=== PATIENT | female | born 1950 | race Caucasian/White ===

== ENCOUNTER 2017-04-02 23:18 | Inpatient (IN) | payer MEDICAID, OTHER ==
--- NOTE | 2017-04-02 23:39 | C.PDOC ---
History Of Present Illness 66F c/o dyspnea on exertion and leg swelling progressively worsening over the last couple months. she recently came back here from [place] 03/27 after being there for 10 months. her daughter noted her BP has been higher than normal the last 3 days. Time Seen by Provider: 04/02/17 23:39 Chief Complaint (Nursing): Lower Extremity Problem/Injury Past Medical History Vital Signs: Last Vital Signs Temp 97.4 F L 04/05/17 16:40 Pulse 66 04/05/17 17:35 Resp 20 04/05/17 16:40 BP 151/76 H 04/05/17 17:35 Pulse Ox 99 04/05/17 16:40 - Medical History PMH: CHF, Diabetes, HTN, Hypercholesterolemia, Peripheral Edema Denies: Asthma (Pt denies), Gastritis, Chronic Kidney Disease Surgical History: CABG (09/02/2015) - [facility] Procedures FLUOROSCOPY OF LEFT HEART USING LOW OSMOLAR CONTRAST (08/30/15) FLUOROSCOPY OF SINGLE CORONARY ARTERY USING L OSM CONTRAST (08/30/15) MEASURE CARDIAC SAMPL & PRESSURE, BILATERAL, PERC (08/30/15) Family History: States: Unknown Family Hx - Social History Hx Alcohol Use: No Hx Substance Use: No - Immunization History Hx Tetanus Toxoid Vaccination: No Hx Influenza Vaccination: No Hx Pneumococcal Vaccination: No Review Of Systems Except As Marked, All Systems Reviewed And Found Negative. Constitutional: Negative for: Fever, Weakness Cardiovascular: Positive for: Orthopnea, Edema. Negative for: Chest Pain Respiratory: Positive for: Cough, SOB with Excertion. Negative for: Shortness of Breath Gastrointestinal: Negative for: Nausea, Vomiting, Abdominal Pain Neurological: Negative for: Weakness, Numbness, Headache Physical Exam - Physical Exam Appears: Non-toxic, Toxic Skin: Warm, Dry Head: Atraumatic Eye(s): bilateral: PERRL Nose: No Epistaxis Oral Mucosa: Moist Lips: No Swelling Neck: Normal ROM Cardiovascular: Rhythm Regular Respiratory: No Accessory Muscle Use, Rales (bibasilar) Gastrointestinal/Abdominal: Soft, No Tenderness Extremity: Swelling (2+ pitting ble) Neurological/Psych: Oriented x3, Other (no focal deficits) ED Course And Treatment - Laboratory Results Result Diagrams: 04/05/17 07:24 04/05/17 04:00 O2 Sat by Pulse Oximetry: 98 Medical Decision Making Medical Decision Making: ecg- nsr 62, lad, no stemi Disposition - Disposition Disposition: HOSPITALIZED Disposition Time: 00:56 Condition: STABLE - Clinical Impression Clinical Impression: Acute on chronic diastolic CHF (congestive heart failure)
[2017-04-03 00:20] LABS: BASO # 0.1 K/uL (0.0-0.2); BASO % 1.3 % (0.0-2.0); EOS # 0.3 K/uL (0.0-0.7); EOS % 3.3 % (0.0-4.0); HEMOGLOBIN 12.1 g/dL (11.0-16.0); LYMPH # 3.2 K/uL (1.0-4.3); LYMPH % 30.9 % (20.0-40.0); MEAN CELL VOLUME 81.5 fL (81.0-99.0); MEAN CORPUSCULAR HEMOGLOBIN 26.3 pg (27.0-31.0); MEAN CORPUSCULAR HGB CONC 32.3 g/dL (33.0-37.0); MEAN PLATELET VOLUME 10.1 fL (7.2-11.7); MONO # 0.7 K/uL (0.0-0.8); MONO % 7.2 % (0.0-10.0); NEUT # 5.9 K/uL (1.8-7.0); NEUT % 57.3 % (50.0-75.0); RBC 4.6 Mil/uL (3.80-5.20); RED CELL DISTRIBUTION WIDTH 15.1 % (11.5-14.5); WHITE BLOOD COUNT 10.4 K/uL (4.8-10.8)
[2017-04-03 00:35] LABS: ALB/GLOB RATIO 0.9 (1.0-2.1); ALT/SGPT 27 U/L (9-52); AST/SGOT 13 U/L (14-36); BLOOD UREA NITROGEN 68 mg/dL (7-17); GFR AFRICAN-AMERICAN 16; GFR NON-AFRICAN AMERICAN 14
[2017-04-03 00:36] LABS: CALCIUM 8.2 mg/dl (8.6-10.4)
[2017-04-03 00:48] LABS: B-TYPE NATRIURETIC PEPTIDE 4210 pg/mL (0-900)
--- NOTE | 2017-04-03 01:09 | CP.PCM.HP ---
<Stacie Garcia - Last Filed: 04/03/17 04:56> History of Present Illness - History of Present Illness History of Present Illness: Medicine Note CC: SOB HPI: 66F with PMHx of CAD, CHF, HTN, HLD, DM presents to the ED with SOB. As per daughter that was at bedside, patient returned from [facility] last week. For the past month she has been feeling fatigued, SOB, difficulty ambulating. She is compliant with her medications, but she does not adhere to the limit in fluid intake and salt intake. Her blood pressures the past 3 days have been elevated, prompting her visit to the ED. She sleeps with 2 pillows at night, denied PND. She admitted to a 20lb weight gain the past few months. Denied fever , chills, headache, chest pain, abdominal pain, n/v/d/c, or urinary symptoms. PMHx: CAD, CHF, HTN, HLD, DM PSHx: CABG, hysterectomy Meds: as per NOV All: NKDA SHx: Denied x3 FHx: Unremarkable Present on Admission - Present on Admission Any Indicators Present on Admission: No Review of Systems - Constitutional Constitutional: Fatigue, Weight Gain. absent: Excessive Sweating, Fever - EENT Eyes: absent: Change in Vision, Loss of Vision Ears: absent: Tinnitus Nose/Mouth/Throat: absent: Sore Throat, Neck Mass - Breasts Breasts: absent: Pain - Cardiovascular Cardiovascular: Edema, Leg Edema, Orthopnea, Pedal Edema. absent: Chest Pain, Chest Pain at Rest - Respiratory Respiratory: absent: Cough, Dyspnea - Gastrointestinal Gastrointestinal: absent: Abdominal Pain - Genitourinary Genitourinary: absent: Dysuria, Hematuria - Musculoskeletal Musculoskeletal: absent: Back Pain - Integumentary Integumentary: absent: Wounds - Neurological Neurological: absent: Syncope, Vertigo, Weakness - Psychiatric Psychiatric: absent: Anxiety - Endocrine Endocrine: absent: Polydipsia, Polyphagia - Hematologic/Lymphatic Hematologic: absent: Easy Bleeding, Easy Bruising Past Patient History - Past Medical History & Family History Past Medical History?: Yes - Past Social History Smoking Status: Never Smoked - CARDIAC Hx Congestive Heart Failure: Yes Hx Hypercholesterolemia: Yes Hx Hypertension: Yes Hx Peripheral Edema: Yes - PULMONARY Hx Asthma: No (Pt denies) - NEUROLOGICAL Hx Neurological Disorder: No - HEENT Other/Comment: BOTH EYES - BLURRY - RENAL Hx Chronic Kidney Disease: No - ENDOCRINE/METABOLIC Hx Diabetes Mellitus Type 2: Yes - HEMATOLOGICAL/ONCOLOGICAL Hx Blood Disorders: No - INTEGUMENTARY Hx Dermatological Problems: No - MUSCULOSKELETAL/RHEUMATOLOGICAL Hx Falls: No - GASTROINTESTINAL Hx Gastritis: No - GENITOURINARY/GYNECOLOGICAL Hx Genitourinary Disorders: No - PSYCHIATRIC Hx Substance Use: No - SURGICAL HISTORY Hx Coronary Artery Bypass Graft: Yes (09/02/2015) - ANESTHESIA Hx Anesthesia: Yes Hx Anesthesia Reactions: No Hx Malignant Hyperthermia: No Meds Allergies/Adverse Reactions: Allergies Allergy/AdvReac Type Severity Reaction Status Date / Time No Known Allergies Allergy Verified 04/02/17 23:27 Physical Exam - Constitutional Appears: No Acute Distress - Head Exam Head Exam: NORMAL INSPECTION, NORMOCEPHALIC - Eye Exam Eye Exam: EOMI, Normal appearance, PERRL Pupil Exam: NORMAL ACCOMODATION - ENT Exam ENT Exam: Mucous Membranes Moist - Respiratory Exam Respiratory Exam: Decreased Breath Sounds, Rales - Cardiovascular Exam Cardiovascular Exam: REGULAR RHYTHM, JVD, RRR, +S1, +S2 - GI/Abdominal Exam GI & Abdominal Exam: Distended, Normal Bowel Sounds, Soft. absent: Tenderness - Rectal Exam Rectal Exam: Deferred - Extremities Exam Extremities exam: Positive for: normal inspection, pedal edema, pedal pulses present. Negative for: tenderness - Back Exam Back exam: NORMAL INSPECTION. absent: CVA tenderness (L), CVA tenderness (R) - Neurological Exam Neurological exam: Alert, CN II-XII Intact, Oriented x3, Reflexes Normal - Psychiatric Exam Psychiatric exam: Normal Affect, Normal Mood - Skin Skin Exam: Dry, Intact, Normal Color, Warm Results - Vital Signs Recent Vital Signs: Last Vital Signs Temp 97.5 F L 04/02/17 23:20 Pulse 62 04/03/17 00:45 Resp 18 04/03/17 00:45 BP 185/83 H 04/03/17 00:45 Pulse Ox 98 04/03/17 00:47 - Labs Result Diagrams: 04/03/17 00:08 04/03/17 00:08 Labs: Laboratory Results - last 24 hr 04/03/17 04/03/17 00:08 00:08 WBC 10.4 RBC 4.60 Hgb 12.1 Hct 37.5 MCV 81.5 D MCH 26.3 L MCHC 32.3 L RDW 15.1 H Plt Count 249 D MPV 10.1 Neut % (Auto) 57.3 Lymph % (Auto) 30.9 Gila % (Auto) 7.2 Eos % (Auto) 3.3 Baso % (Auto) 1.3 Neut # 5.9 Lymph # 3.2 Gila # 0.7 Eos # 0.3 Baso # 0.1 Sodium 135 Potassium 4.9 Chloride 103 Carbon Dioxide 20 L Anion Gap 17 BUN 68 H Creatinine 3.4 H Est GFR ( Amer) 16 Est GFR (Non-Af Amer) 14 Random Glucose 330 H Calcium 8.2 L Total Bilirubin 0.4 AST 13 L ALT 27 Alkaline Phosphatase 112 Troponin I < 0.0120 NT-Pro-B Natriuret Pep 4210 H Total Protein 6.3 Albumin 3.0 L Globulin 3.3 Albumin/Globulin Ratio 0.9 L Assessment & Plan - Assessment and Plan (Free Text) Assessment: 66F with PMHx of CAD, CHF, HTN, HLD, DM presents to the ED with SOB Plan: CHF Exacerbation * BNP:4210 * Last ECHO 03/2016: EF of 51% with diastolic dysfunction * Nuclear stress test was done later that month of 03/2016 --> EF 30% * Lasix 40mg IVP BID * F/U ECHO Acute on Chronic Renal Insufficiency * Upon admission: BUN/ CRE: 68/ 3.4 * Baseline creatinine: 2.4 * Nephrology consulted - Dr. Archuleta- help appreciated * F/U urine protein, creatine HTN * Resumed the following home medications: Coreg 6.25mg PO BID, Metolazone 2.5mg PO daily * Added Hydralazine 25mg PO TID, Imdur 30mg PO daily HLD * Crestor 5mg PO QHS * F/U Lipid Panel DM * Accuchecks * ISS * Gabapentin 300mg PO BID * F/U HBGA1C Hx CAD Prophylactic Measure * GI PPX: Protonix 40mg PO daily * DVT PPX: Heparin Q12H, SCDs c/i due to CHF * Carb Consistent Diet, with fluid restriction of <1200mL * Daily Weight, intake and output DW Radha Quevedo DO, PGY-1 <Rolan Rodriguez P - Last Filed: 07/16/17 06:33> Results - Vital Signs Recent Vital Signs: Last Vital Signs Temp 97.6 F 04/07/17 23:20 Pulse 55 L 04/08/17 00:00 Resp 20 04/07/17 23:20 BP 131/70 04/07/17 23:20 Pulse Ox 96 04/07/17 23:20 - Labs Result Diagrams: 04/06/17 11:27 04/07/17 07:15 Labs: Laboratory Results - last 24 hr 04/07/17 04/07/17 04/07/17 07:15 11:48 16:15 Sodium 138 Potassium 5.0 Chloride 102 Carbon Dioxide 23 Anion Gap 17 BUN 77 H Creatinine 4.4 H Est GFR ( Amer) 12 Est GFR (Non-Af Amer) 10 POC Glucose (mg/dL) 287 H 220 H Random Glucose 113 H Calcium 7.8 L 04/07/17 04/08/17 21:25 06:10 Sodium Potassium Chloride Carbon Dioxide Anion Gap BUN Creatinine Est GFR ( Amer) Est GFR (Non-Af Amer) POC Glucose (mg/dL) 165 H 78 Random Glucose Calcium Attending/Attestation - Attestation I have personally seen and examined this patient.: Yes I have fully participated in the care of the patient.: Yes I have reviewed all pertinent clinical information: Yes
[2017-04-03 01:17] LABS: SQUAMOUS EPITHIAL 2 /hpf (0-5); URINE BACTERIA RARE (<OCC); URINE BILIRUBIN NEGATIVE (NEGATIVE); URINE BLOOD NEGATIVE (NEGATIVE); URINE CLARITY Clear (Clear); URINE COLOR Straw (YELLOW); URINE GLUCOSE (UA) 3+ mg/dL (Normal); URINE LEUKOCYTE ESTERASE NEG Leu/uL (Negative); URINE NITRATE NEGATIVE (NEGATIVE); URINE PROTEIN 2+ mg/dL (NEGATIVE); URINE UROBILINOGEN NORMAL mg/dL (0.2-1.0)
[2017-04-03 05:36] LABS: HDL CHOLESTEROL 40 mg/dL (30-70)
[2017-04-03 05:48] LABS: LDL CHOLESTEROL 135 mg/dL (0-129)
[2017-04-03] MEDS: (Novolin R) Insulin Human Regular 100 units/ml vial SC SCH ×4 (08:20→22:12)
--- NOTE | 2017-04-03 09:10 | CP.PCM.PN ---
Subjective - Date & Time of Evaluation Date of Evaluation: 04/03/17 Time of Evaluation: 08:45 - Subjective Subjective: Hospitalist Progress Note (Patient was seen and examined at 8:45 AM 04/03/17 ER Bed #14 with Daughter Vini present) PMD: [facility] CODE STATUS: FULL CODE. NO Living Will/Advance Directive. Designates Daughter Vini [phone] as Health Care Proxy 66 year old female (PMHx CHF, CAD Chronic Renal Insufficiency, HTN, HLD, DM 2 on Insulin) was admitted earlier this morning 04/03/17 for 1 month of worsening fatigue, SOB, and difficulty ambulating. She was found to be in CHF Exacerbation. Currrently upon FULL ROS there is NO chest pain, NO palpitations, (+) SOB but it has improved since treatment in ER and is not currently requiring supplemental oxygen, (+) Cough dry that comes and goes, NO wheezing, NO abdominal pain, NO n/v/d/c, NO burning/pain with urination, NO lightheadedness/ dizziness, NO headache, NO new changes in vision, NO new changes in hearing, NO paresthesias, NO diaphoresis, (+) Edema of the legs that has worsened over the past 1 month Exam: HEENT: NCA, EOMI, PERRLA, NO lymphadenopathy, NO thyromegaly, NO pharyngeal erythema/exudate Cardio: NS1 and NS2, NO M/R/G, NO JVD, NO Hepatojugular Reflux Resp: Bilateral Mid to Lower Lung Field Inspiratory Rhonchi GI: BSx4 are decreased, NT, Central Obesity, Could NOT adequately palpate Liver and Spleen, NO guarding rebound tenderness Ext: Pulses are strong and equal, Capillary Refill is 2 seconds, 1+ Pitting Edema from the feet to the just below the knees Neuro: CN II through XII are grossly intact Assessment and Plan: 1). CHF Exacerbation/Hx CAD BNP is 4210 Echo done in March 2016 showed EF 51% Nuclear Stress Test March 2016 showed and EF of 30% Carvedilol 6.25 mg PO 2x/day Lasix 40 mg IV Q12H Isosorbide Mononitrate 30 mg PO 1x/day Metolazone 2.5 mg PO 1x/day F/U 2ED Echocardiogram F/U further recommendations Cardiology Dr. Gamez F/U Daily Weight F/u CT Chest 2). Acute On Chronic Renal Insufficiency BUN/Cr currently at 68/3.4 and baseline Cr is 2.4 F/U Renal U/S F/U Urine Protein and Cr F/U further recommendations from Nephrology Dr. Archuleta 3). HTN Carvedilol, Isorbide, Lasix, Metolazone as above 4). HLD Crestor 5 mg PO QHS 5). DM 2 on Insulin Levemir 15 units SC QHS Regular ISS Gabapentin 300 mg PO 2x/day 6). Prophylactic Measure Heparin 5,000 Units SC Q12H Protonix 40 mg PO 1x/day Carb Consisten Diet Fluid Restrict 1200 per day Daily Weight F/U Bilateral Venous Dopplers Hermelindo Jo D.O. Objective - Vital Signs/Intake and Output Vital Signs (last 24 hours): Temp Pulse Resp BP Pulse Ox 98.1 F 55 L 16 180/66 H 97 04/03/17 07:25 04/03/17 07:25 04/03/17 07:25 04/03/17 07:25 04/03/17 07:25 - Medications Medications: Current Medications Carvedilol (Coreg) 6.25 mg PO BID JACIEL Clopidogrel Bisulfate (Plavix) 75 mg PO DAILY JACIEL Famotidine (Pepcid) 20 mg PO BID JACIEL Furosemide (Lasix) 40 mg IVP Q12 JACIEL Gabapentin (Neurontin) 300 mg PO BID JACIEL Heparin Sodium (Porcine) (Heparin) 5,000 units SC Q12 JACIEL Hydralazine HCl (Apresoline) 25 mg PO TID JACIEL Insulin Detemir (Levemir) 15 unit SC HS [facility] Insulin Human Regular (Novolin R) 0 unit SC ACHS JACIEL PRN Reason: Protocol Last Admin: 04/03/17 08:20 Dose: 1 unit Isosorbide Mononitrate (Imdur) 30 mg PO DAILY JACIEL Metolazone (Zaroxolyn) 2.5 mg PO DAILY JACIEL Rosuvastatin Calcium (Crestor) 5 mg PO HS JACIEL
[2017-04-03] MEDS: metOLazone 2.5 MG TAB PO SCH (10:15)
--- NOTE | 2017-04-03 10:23 | US ---
PROCEDURE: Ultrasound of the Kidneys HISTORY: Acute on Chronic Renal Insufficiency COMPARISON: 09/15/2015. TECHNIQUE: Sonogram of the kidneys. FINDINGS: RIGHT KIDNEY: Measures: 11.6 x 4.6 x 4.9 cm. Normal in size, contour and echogenicity. No stone, solid mass lesion or hydronephrosis visualized. LEFT KIDNEY: Measures: 11.4 by 5.8 x 6.0 cm. Normal in size, contour and echogenicity. No stone, solid mass lesion or hydronephrosis visualized. OTHER FINDINGS: Moderate bladder distention IMPRESSION: No hydronephrosis. Unremarkable kidneys per this ultrasound
--- NOTE | 2017-04-03 11:18 | CT ---
PROCEDURE: CT scan of the chest dated 04/03/2017. HISTORY: evaluation of pleural effusion; hx of CHF COMPARISON: The comparison made with chest radiograph earlier same day. Comparison also made in in with the with prior study 04/15/2016 TECHNIQUE: Contiguous axial images were obtained through the chest without intravenous contrast enhancement. Sagittal and coronal reconstructions were performed. Radiation dose (DLP): 767.08 mGy-cm. This CT exam was performed using one or more of the following dose reduction techniques: Automated exposure control, adjustment of the mA and/or kV according to patient size, and/or use of iterative reconstruction technique. FINDINGS: LUNGS: The pulmonary vasculature is increased with ground-glass opacities consistent with this patient's history of pulmonary edema/ CHF. Additionally, there are areas of linear atelectasis and or scarring in the left upper lobe. The the MEDIASTINUM: Sternotomy wires again noted Heart is enlarged. No significant pericardial effusion. . Ascending thoracic aorta measures approximately 3.56 cm and descending thoracic aorta measures approximately 2.26 cm. Pulmonary trunk measures approximately 3.5 cm ; rule out underlying mild pulmonary arterial hypertension. Several small nonspecific mediastinal lymph nodes are present. Evaluation for hilar adenopathy is limited due to the lack of circulating intravenous contrast material. The the central airways are midline and patent. No obvious endoluminal lesions. . PLEURA: No pleural fluid. No pneumothorax. BONES: Minor multilevel degenerative spondylosis of the thoracic spine. There are no acute compression fractures nor retropulsed fragments. Vertebral bodies exhibit normal stature. UPPER ABDOMEN: Grossly unremarkable. OTHER FINDINGS: Thyroid gland is small of mildly prominent. Small approximately 5 mm low-attenuation focus right lobe thyroid gland could represent nodule or colloid cyst. Followup thyroid ultrasound suggested IMPRESSION: Findings consistent with mild pulmonary edema/ CHF. Linear atelectasis and or scarring left upper lobe. Cardiomegaly. No significant pericardial effusion. See above discussion for additional findings and details.
--- NOTE | 2017-04-03 11:57 | CP.PCM.CON ---
History of Present Illness - History of Present Illness History of Present Illness: HPI: 66F with PMHx of CAD, CHF, HTN, HLD, DM presents to the ED with SOB. As per daughter that was at bedside, patient returned from [facility] last week. For the past month she has been feeling fatigued, SOB, difficulty ambulating. She is compliant with her medications, but she does not adhere to the limit in fluid intake and salt intake. Her blood pressures the past 3 days have been elevated, prompting her visit to the ED. She sleeps with 2 pillows at night, denied PND. She admitted to a 20lb weight gain the past few months. Denied fever , chills, headache, chest pain, abdominal pain, n/v/d/c, or urinary symptoms. Hx of ckd 4, baseline creatinine mid 2s. started on iv lasix inpatient last stress test 2015- ef 30% PMHx: CAD, CHF, HTN, HLD, DM PSHx: CABG, hysterectomy Meds: as per MAR All: NKDA SHx: Denied x3 FHx: Unremarkable Review of Systems - Review of Systems All systems: reviewed and no additional remarkable complaints except (as per hpi ) Past Patient History - Past Medical History & Family History Past Medical History?: Yes - Past Social History Smoking Status: Never Smoked - CARDIAC Hx Congestive Heart Failure: Yes Hx Hypercholesterolemia: Yes Hx Hypertension: Yes Hx Peripheral Edema: Yes - PULMONARY Hx Asthma: No (Pt denies) - NEUROLOGICAL Hx Neurological Disorder: No - HEENT Other/Comment: BOTH EYES - BLURRY - RENAL Hx Chronic Kidney Disease: No - ENDOCRINE/METABOLIC Hx Diabetes Mellitus Type 2: Yes - HEMATOLOGICAL/ONCOLOGICAL Hx Blood Disorders: No - INTEGUMENTARY Hx Dermatological Problems: No - MUSCULOSKELETAL/RHEUMATOLOGICAL Hx Falls: No - GASTROINTESTINAL Hx Gastritis: No - GENITOURINARY/GYNECOLOGICAL Hx Genitourinary Disorders: No - PSYCHIATRIC Hx Substance Use: No - SURGICAL HISTORY Hx Coronary Artery Bypass Graft: Yes (09/02/2015) - ANESTHESIA Hx Anesthesia: Yes Hx Anesthesia Reactions: No Hx Malignant Hyperthermia: No Meds Allergies/Adverse Reactions: Allergies Allergy/AdvReac Type Severity Reaction Status Date / Time No Known Allergies Allergy Verified 04/02/17 23:27 - Medications Medications: Current Medications Carvedilol (Coreg) 6.25 mg PO BID JACIEL Last Admin: 04/03/17 10:11 Dose: 6.25 mg Clopidogrel Bisulfate (Plavix) 75 mg PO DAILY [facility] Last Admin: 04/03/17 10:16 Dose: 75 mg Famotidine (Pepcid) 20 mg PO BID [facility] Last Admin: 04/03/17 10:15 Dose: 20 mg Furosemide (Lasix) 40 mg IVP Q12 [facility] Last Admin: 04/03/17 11:40 Dose: 40 mg Gabapentin (Neurontin) 300 mg PO BID [facility] Last Admin: 04/03/17 11:45 Dose: 300 mg Heparin Sodium (Porcine) (Heparin) 5,000 units SC Q12 [facility] Hydralazine HCl (Apresoline) 25 mg PO TID [facility] Last Admin: 04/03/17 10:10 Dose: 25 mg Insulin Detemir (Levemir) 15 unit SC [facility] Insulin Human Regular (Novolin R) 0 unit SC ACHS [facility] PRN Reason: Protocol Last Admin: 04/03/17 08:20 Dose: 1 unit Isosorbide Mononitrate (Imdur) 30 mg PO DAILY [facility] Last Admin: 04/03/17 10:14 Dose: 30 mg Metolazone (Zaroxolyn) 2.5 mg PO DAILY [facility] Last Admin: 04/03/17 10:15 Dose: 2.5 mg Rosuvastatin Calcium (Crestor) 5 mg PO [facility] Physical Exam - Constitutional Appears: Non-toxic, No Acute Distress, Other (obese) - Head Exam Head Exam: NORMAL INSPECTION - Eye Exam Eye Exam: Normal appearance - ENT Exam ENT Exam: Mucous Membranes Moist, Normal Exam - Neck Exam Neck exam: Positive for: Normal Inspection - Respiratory Exam Respiratory Exam: Decreased Breath Sounds, NORMAL BREATHING PATTERN - Cardiovascular Exam Cardiovascular Exam: REGULAR RHYTHM, RRR - GI/Abdominal Exam GI & Abdominal Exam: Distended, Normal Bowel Sounds, Soft - Extremities Exam Extremities exam: Positive for: pedal edema Results - Vital Signs Recent Vital Signs: Last Vital Signs Temp 98.1 F 04/03/17 07:25 Pulse 60 04/03/17 11:32 Resp 16 04/03/17 11:32 BP 166/66 H 04/03/17 11:40 Pulse Ox 98 04/03/17 11:32 - Labs Result Diagrams: 04/03/17 00:08 04/03/17 00:08 Labs: Laboratory Results - last 24 hr 04/03/17 04/03/17 04/03/17 05:21 05:21 05:21 POC Glucose (mg/dL) Hemoglobin A1c 11.1 H Triglycerides 109 D Cholesterol 207 H LDL Cholesterol Direct 135 H HDL Cholesterol 40 25-OH Vitamin D Total < 12.8 L Urine Eosinophils Ur Random Creatinine U Random Total Protein 04/03/17 04/03/17 04/03/17 07:45 08:02 08:02 POC Glucose (mg/dL) 196 H Hemoglobin A1c Triglycerides Cholesterol LDL Cholesterol Direct HDL Cholesterol 25-OH Vitamin D Total Urine Eosinophils Negative Ur Random Creatinine 25.5 U Random Total Protein Cancelled 04/03/17 04/03/17 11:21 11:47 POC Glucose (mg/dL) 325 H Hemoglobin A1c Triglycerides Cholesterol LDL Cholesterol Direct HDL Cholesterol 25-OH Vitamin D Total Urine Eosinophils Ur Random Creatinine U Random Total Protein 266.0 H Assessment & Plan (1) AINSLEY (acute kidney injury) Status: Acute (2) Acute on chronic diastolic CHF (congestive heart failure) Status: Acute (3) Acute on chronic renal insufficiency Status: Acute (4) CKD (chronic kidney disease) stage 4, GFR 15-29 ml/min Status: Acute (5) Cardiorenal syndrome Status: Acute (6) HTN (hypertension) Status: Acute - Assessment and Plan (Free Text) Assessment: # Ainsley / underlying ckd 4 # chf / fluid overload # nephrotic syndrome, approx 10g proteinuria, DM nephropathy # htn plan: agree w/ iv lasix started on hydralazine, may increase dose if bp uncontrolled not a candidate for acei / arb, watch renal function renal ultrasound unremarkable check pth, phos
[2017-04-03] MEDS ORDERED: (Novolin R) Insulin Human Regular 100 units/ml vial ONE (12:00)
--- NOTE | 2017-04-03 12:05 | RAD ---
HISTORY: Shortness of breath COMPARISON: No prior. TECHNIQUE: Chest PA and lateral FINDINGS: LUNGS: Prominent diffuse increased interstitial lung markings suggestive for infiltrate and or edema. PLEURA: No significant pleural effusion identified. No pneumothorax apparent. CARDIOVASCULAR: Status post median sternotomy and CABG. Cardiomegaly. Mild calcification at the aortic knob. OSSEOUS STRUCTURES: Degenerative changes in the spine and shoulders. VISUALIZED UPPER ABDOMEN: Normal. OTHER FINDINGS: None. IMPRESSION: Prominent diffuse increased interstitial lung markings suggestive for infiltrate and or edema.
[2017-04-03 12:24] LABS: INR 0.9; PROTHROMBIN TIME 10.6 SECONDS (9.7-12.2)
--- NOTE | 2017-04-03 17:33 | CP.PCM.CON ---
History of Present Illness - History of Present Illness History of Present Illness: CC: leg swelling HPI: 66 yo Amber female with significant PMHx of CHF and CABG in 2014 presents to the ED complaining of increased swelling to bilateral legs and abdomen since August when she returned from [place] and worsening in the last 3 months. Patient states she weighed 193 lbs in Dec and now weighs 214 lbs. Associated symptoms include mild SOB that only occurs with lying flat and attempted exertion. There is also nausea, dizziness and unsteadiness when walking with occasional vomiting. The nausea and dizziness are relieved with sitting still. Denies fever, chills, diarrhea, chest pain, palpitations, and abdominal pain. note: Patient states she is compliant with her medications and that her normal blood sugar at home is about 150 in the morning and 250+ at night. PMD: none Current Medications: - Coreg 6.25 mg PO bid - Plavix 75 mg PO daily - Lasix 40 mg IVP Q12 - Heparin 5000 U SC Q12 - Hydralazine Hcl 25 mg PO tid - Isosorbide Mononitrate 30 mg PO daily - Metolazone 2.5 mg PO daily - Crestor 5 mg PO HS Allergies: patient states there is one medication that "makes her feel uncomfortable" but does not know what it is PMHx: diabetes, CHF PSHx: CABG FamHx: no known SocHx: - denies tobacco, alcohol, and drug use; unemployed Review of Systems - Review of Systems All systems: reviewed and no additional remarkable complaints except Review of Systems: negative except per hpi Past Patient History - Infectious Disease Hx of Infectious Diseases: None - Tetanus Immunizations Tetanus Immunization: Unknown - Past Medical History & Family History Past Medical History?: Yes Past Family History: Reviewed and not pertinent - Past Social History Smoking Status: Never Smoked Chewing Tobacco Use: No Cigar Use: No Alcohol: None Drugs: Denies Home Situation {Lives}: With Family Domestic Violence: Negative - CARDIAC Hx Congestive Heart Failure: Yes Hx Hypercholesterolemia: Yes Hx Hypertension: Yes Hx Peripheral Edema: Yes - PULMONARY Hx Asthma: No (Pt denies) - NEUROLOGICAL Hx Neurological Disorder: No - HEENT Other/Comment: BOTH EYES - BLURRY - RENAL Hx Chronic Kidney Disease: No - ENDOCRINE/METABOLIC Hx Diabetes Mellitus Type 2: Yes - HEMATOLOGICAL/ONCOLOGICAL Hx Blood Disorders: No - INTEGUMENTARY Hx Dermatological Problems: No - MUSCULOSKELETAL/RHEUMATOLOGICAL Hx Falls: No - GASTROINTESTINAL Hx Gastritis: No - GENITOURINARY/GYNECOLOGICAL Hx Genitourinary Disorders: No - PSYCHIATRIC Hx Substance Use: No - SURGICAL HISTORY Hx Coronary Artery Bypass Graft: Yes (09/02/2015) - ANESTHESIA Hx Anesthesia: Yes Hx Anesthesia Reactions: No Hx Malignant Hyperthermia: No Meds Allergies/Adverse Reactions: Allergies Allergy/AdvReac Type Severity Reaction Status Date / Time No Known Allergies Allergy Verified 04/02/17 23:27 - Medications Medications: Current Medications Carvedilol (Coreg) 6.25 mg PO BID [facility] Last Admin: 04/03/17 17:17 Dose: 6.25 mg Clopidogrel Bisulfate (Plavix) 75 mg PO DAILY [facility] Last Admin: 04/03/17 10:16 Dose: 75 mg Famotidine (Pepcid) 20 mg PO BID [facility] Last Admin: 04/03/17 17:17 Dose: 20 mg Furosemide (Lasix) 40 mg IVP Q12 [facility] Last Admin: 04/03/17 11:40 Dose: 40 mg Gabapentin (Neurontin) 300 mg PO BID [facility] Last Admin: 04/03/17 17:17 Dose: 300 mg Heparin Sodium (Porcine) (Heparin) 5,000 units SC Q12 [facility] Last Admin: 04/03/17 13:05 Dose: 5,000 units Hydralazine HCl (Apresoline) 25 mg PO TID [facility] Last Admin: 04/03/17 17:17 Dose: 25 mg Insulin Detemir (Levemir) 15 unit SC HS [facility] Insulin Human Regular (Novolin R) 0 unit SC ACHS [facility] PRN Reason: Protocol Last Admin: 04/03/17 11:55 Dose: 4 unit Isosorbide Mononitrate (Imdur) 30 mg PO DAILY [facility] Last Admin: 04/03/17 10:14 Dose: 30 mg Metolazone (Zaroxolyn) 2.5 mg PO DAILY [facility] Last Admin: 04/03/17 10:15 Dose: 2.5 mg Rosuvastatin Calcium (Crestor) 5 mg PO HS [facility] Physical Exam - Constitutional Appears: Non-toxic, No Acute Distress - Head Exam Head Exam: ATRAUMATIC, NORMAL INSPECTION, NORMOCEPHALIC - Eye Exam Eye Exam: EOMI - ENT Exam ENT Exam: Mucous Membranes Moist - Neck Exam Neck exam: Positive for: Full Rom, Normal Inspection - Respiratory Exam Respiratory Exam: Rhonchi, NORMAL BREATHING PATTERN. absent: Respiratory Distress - Cardiovascular Exam Cardiovascular Exam: +S1, +S2 - GI/Abdominal Exam GI & Abdominal Exam: Normal Bowel Sounds, Soft. absent: Tenderness - Extremities Exam Extremities exam: Positive for: full ROM, normal inspection - Neurological Exam Neurological exam: Alert, Oriented x3 - Psychiatric Exam Psychiatric exam: Normal Affect, Normal Mood - Skin Skin Exam: Dry, Intact, Normal Color, Warm Results - Vital Signs Recent Vital Signs: Last Vital Signs Temp 97.4 F L 04/03/17 17:27 Pulse 57 L 04/03/17 17:27 Resp 20 04/03/17 17:27 BP 125/69 04/03/17 17:27 Pulse Ox 96 04/03/17 17:27 - Labs Result Diagrams: 04/03/17 00:08 04/03/17 00:08 Labs: Laboratory Results - last 24 hr 04/03/17 04/03/17 04/03/17 05:21 05:21 05:21 PT INR APTT POC Glucose (mg/dL) Hemoglobin A1c 11.1 H Triglycerides 109 D Cholesterol 207 H LDL Cholesterol Direct 135 H HDL Cholesterol 40 25-OH Vitamin D Total < 12.8 L Urine Eosinophils Ur Random Creatinine U Random Total Protein 04/03/17 04/03/17 04/03/17 07:45 08:02 08:02 PT INR APTT POC Glucose (mg/dL) 196 H Hemoglobin A1c Triglycerides Cholesterol LDL Cholesterol Direct HDL Cholesterol 25-OH Vitamin D Total Urine Eosinophils Negative Ur Random Creatinine 25.5 U Random Total Protein Cancelled 04/03/17 04/03/17 04/03/17 11:21 11:39 11:47 PT 10.6 INR 0.9 APTT 32 POC Glucose (mg/dL) 325 H Hemoglobin A1c Triglycerides Cholesterol LDL Cholesterol Direct HDL Cholesterol 25-OH Vitamin D Total Urine Eosinophils Ur Random Creatinine U Random Total Protein 266.0 H 04/03/17 12:46 PT INR APTT POC Glucose (mg/dL) 322 H Hemoglobin A1c Triglycerides Cholesterol LDL Cholesterol Direct HDL Cholesterol 25-OH Vitamin D Total Urine Eosinophils Ur Random Creatinine U Random Total Protein Assessment & Plan - Assessment and Plan (Free Text) Assessment: A/P CHF exacerbation -continue coreg -lasix 4 iv q 12 -heparin 5000 q 12 -hydralazine 25 po tid -imdur 30 daily -metolazone 2.5 daily -crestor daily -echo pending -dopplers pending
[2017-04-03] MEDS ORDERED: Insulin Detemir 100 units/ml Vial (Levemir) SC SCH (22:00)
[2017-04-04 01:30] VITALS: RESP 20
[2017-04-04 08:43] LABS: BASO # 0.1 K/uL (0.0-0.2); BASO % 1.1 % (0.0-2.0); EOS # 0.4 K/uL (0.0-0.7); EOS % 4.2 % (0.0-4.0); HEMOGLOBIN 12.3 g/dL (11.0-16.0); LYMPH # 2.8 K/uL (1.0-4.3); LYMPH % 27.7 % (20.0-40.0); MEAN CELL VOLUME 81.8 fL (81.0-99.0); MEAN CORPUSCULAR HEMOGLOBIN 26.3 pg (27.0-31.0); MEAN CORPUSCULAR HGB CONC 32.2 g/dL (33.0-37.0); MEAN PLATELET VOLUME 9.9 fL (7.2-11.7); MONO # 0.7 K/uL (0.0-0.8); NEUT # 6.1 K/uL (1.8-7.0); NRBC % 0.1 % (0.0-2.0); RBC 4.68 Mil/uL (3.80-5.20); RED CELL DISTRIBUTION WIDTH 15.3 % (11.5-14.5); WHITE BLOOD COUNT 10.2 K/uL (4.8-10.8)
[2017-04-04 08:54] LABS: ALBUMIN 2.9 g/dL (3.5-5.0)
[2017-04-04 08:57] LABS: ALB/GLOB RATIO 0.8 (1.0-2.1)
[2017-04-04 08:58] LABS: CALCIUM 8.2 mg/dl (8.6-10.4); MAGNESIUM 2.2 mg/dL (1.6-2.3)
[2017-04-04] MEDS: (Novolin R) Insulin Human Regular 100 units/ml vial SC SCH ×5 (09:10→22:15)
[2017-04-04] MEDS: metOLazone 2.5 MG TAB PO SCH (11:05)
--- NOTE | 2017-04-04 12:41 | CP.PCM.PN ---
Subjective - Date & Time of Evaluation Date of Evaluation: 04/04/17 Time of Evaluation: 12:40 - Subjective Subjective: Progress note, cardiology, Dr. Gamez Pt seen/examined at bedside. No acute distress. No events overnight. Pt says she is feeling better. No fevers, chills, vomiting, diarrhea, chest pain, sob. Objective - Vital Signs/Intake and Output Vital Signs (last 24 hours): Temp Pulse Resp BP Pulse Ox 97.9 F 62 20 114/65 98 04/04/17 00:00 04/04/17 11:03 04/04/17 00:00 04/04/17 11:04 04/04/17 00:00 Intake and Output: 04/04/17 04/04/17 06:59 18:59 Intake Total 200 Balance 200 - Medications Medications: Current Medications Carvedilol (Coreg) 6.25 mg PO BID [facility] Last Admin: 04/04/17 11:05 Dose: 6.25 mg Clopidogrel Bisulfate (Plavix) 75 mg PO DAILY [facility] Last Admin: 04/04/17 11:05 Dose: 75 mg Famotidine (Pepcid) 20 mg PO BID [facility] Last Admin: 04/04/17 11:04 Dose: 20 mg Furosemide (Lasix) 40 mg IVP Q12 [facility] Last Admin: 04/04/17 11:04 Dose: 40 mg Gabapentin (Neurontin) 100 mg PO BID [facility] Heparin Sodium (Porcine) (Heparin) 5,000 units SC Q12 [facility] Last Admin: 04/04/17 11:04 Dose: 5,000 units Hydralazine HCl (Apresoline) 25 mg PO TID [facility] Last Admin: 04/04/17 11:05 Dose: 25 mg Insulin Detemir (Levemir) 15 unit SC HS [facility] Last Admin: 04/03/17 22:11 Dose: 15 unit Insulin Human Regular (Novolin R) 0 unit SC [facility] PRN Reason: Protocol Last Admin: 04/04/17 09:10 Dose: 1 unit Isosorbide Mononitrate (Imdur) 30 mg PO DAILY [facility] Last Admin: 04/04/17 11:04 Dose: 30 mg Metolazone (Zaroxolyn) 2.5 mg PO DAILY [facility] Last Admin: 04/04/17 11:05 Dose: 2.5 mg Rosuvastatin Calcium (Crestor) 5 mg PO HS [facility] Last Admin: 04/03/17 22:11 Dose: 5 mg - Labs Labs: 04/04/17 08:32 04/04/17 08:32 PT 10.6 SECONDS (9.7-12.2) 04/03/17 11:39 INR 0.9 04/03/17 11:39 APTT 32 SECONDS (21-34) 04/03/17 11:39 - Constitutional Appears: Non-toxic, No Acute Distress - Head Exam Head Exam: ATRAUMATIC, NORMAL INSPECTION, NORMOCEPHALIC - Eye Exam Eye Exam: EOMI - ENT Exam ENT Exam: Mucous Membranes Moist - Neck Exam Neck Exam: Full ROM, Normal Inspection - Respiratory Exam Respiratory Exam: Rhonchi. absent: Respiratory Distress - Cardiovascular Exam Cardiovascular Exam: +S1, +S2 - GI/Abdominal Exam GI & Abdominal Exam: Soft, Normal Bowel Sounds. absent: Tenderness - Back Exam Back Exam: NORMAL INSPECTION - Neurological Exam Neurological Exam: Alert, Awake, Oriented x3 - Psychiatric Exam Psychiatric exam: Normal Affect, Normal Mood - Skin Skin Exam: Dry, Intact, Normal Color, Warm Assessment and Plan - Assessment and Plan (Free Text) Assessment: A/P CHF exacerbation -continue coreg -lasix 4 iv q 12 -heparin 5000 q 12 -hydralazine 25 po tid -imdur 30 daily -metolazone 2.5 daily -crestor daily -echo pending -pt diuresing nicely -negative balance -heart healthy diet
--- NOTE | 2017-04-04 13:36 | CP.PCM.PN ---
Subjective - Date & Time of Evaluation Date of Evaluation: 04/04/17 Time of Evaluation: 13:33 - Subjective Subjective: Maybe less dyspneic today Weight decreased to 225#s Creat increased to 3.6 CT chest - consistent with CHF Renal US- negative No CPs,n, v, f, c, d. Objective - Vital Signs/Intake and Output Vital Signs (last 24 hours): Temp Pulse Resp BP Pulse Ox 97.9 F 62 20 114/65 94 L 04/04/17 00:00 04/04/17 12:34 04/04/17 00:00 04/04/17 11:04 04/04/17 12:34 Intake and Output: 04/04/17 04/04/17 06:59 18:59 Intake Total 200 Balance 200 - Medications Medications: Current Medications Carvedilol (Coreg) 6.25 mg PO BID [facility] Last Admin: 04/04/17 11:05 Dose: 6.25 mg Clopidogrel Bisulfate (Plavix) 75 mg PO DAILY [facility] Last Admin: 04/04/17 11:05 Dose: 75 mg Famotidine (Pepcid) 20 mg PO BID [facility] Last Admin: 04/04/17 11:04 Dose: 20 mg Furosemide (Lasix) 40 mg IVP Q12 [facility] Last Admin: 04/04/17 11:04 Dose: 40 mg Gabapentin (Neurontin) 100 mg PO BID [facility] Heparin Sodium (Porcine) (Heparin) 5,000 units SC Q12 [facility] Last Admin: 04/04/17 11:04 Dose: 5,000 units Hydralazine HCl (Apresoline) 25 mg PO TID [facility] Last Admin: 04/04/17 11:05 Dose: 25 mg Insulin Detemir (Levemir) [address] [facility] Last Admin: 04/03/17 22:11 Dose: 15 unit Insulin Human Regular (Novolin R) 0 unit SC [facility] PRN Reason: Protocol Last Admin: 04/04/17 09:10 Dose: 1 unit Isosorbide Mononitrate (Imdur) 30 mg PO DAILY [facility] Last Admin: 04/04/17 11:04 Dose: 30 mg Metolazone (Zaroxolyn) 2.5 mg PO DAILY [facility] Last Admin: 04/04/17 11:05 Dose: 2.5 mg Rosuvastatin Calcium (Crestor) 5 mg PO HS [facility] Last Admin: 04/03/17 22:11 Dose: 5 mg - Labs Labs: 04/04/17 08:32 04/04/17 08:32 PT 10.6 SECONDS (9.7-12.2) 04/03/17 11:39 INR 0.9 04/03/17 11:39 APTT 32 SECONDS (21-34) 04/03/17 11:39 - Constitutional Appears: Non-toxic, Chronically Ill - Head Exam Head Exam: ATRAUMATIC, NORMAL INSPECTION - Eye Exam Eye Exam: EOMI, Normal appearance - Neck Exam Neck Exam: Normal Inspection. absent: Tenderness - Respiratory Exam Respiratory Exam: Rales, Respiratory Distress - Cardiovascular Exam Cardiovascular Exam: REGULAR RHYTHM, +S1 - GI/Abdominal Exam GI & Abdominal Exam: Soft. absent: Tenderness - Extremities Exam Extremities Exam: Normal Inspection, Tenderness - Neurological Exam Neurological Exam: Alert, CN II-XII Intact - Skin Skin Exam: Dry, Warm Assessment and Plan (1) Proteinuria Status: Acute (2) Type 2 diabetes mellitus with diabetic nephropathy Status: Acute (3) Acute on chronic diastolic CHF (congestive heart failure) Status: Acute (4) CKD (chronic kidney disease) stage 4, GFR 15-29 ml/min Status: Acute (5) Cardiomyopathy Status: Acute (6) Cardiorenal syndrome Status: Acute - Assessment and Plan (Free Text) Plan: Continue present diuretics Serial chemistries Check protein excretiomn rate
--- NOTE | 2017-04-04 15:44 | CP.PCM.PN ---
<Unique Marti - Last Filed: 04/04/17 15:59> Subjective - Date & Time of Evaluation Date of Evaluation: 04/04/17 Time of Evaluation: 07:00 - Subjective Subjective: PGY1- Medicine Note- Dr. Jo's Patient Patient seen and examined at bedside and in no acute distress. Patient feels she is breathing better than yesterday and feels overall much better than yesterday. Patient denies chest pain, stomach pain. Patient had a normal bowel movement today and is urinating okay. Objective - Vital Signs/Intake and Output Vital Signs (last 24 hours): Temp Pulse Resp BP Pulse Ox 97.9 F 60 20 136/70 94 L 04/04/17 00:00 04/04/17 13:36 04/04/17 00:00 04/04/17 13:36 04/04/17 12:34 Intake and Output: 04/04/17 04/04/17 06:59 18:59 Intake Total 200 Balance 200 - Medications Medications: Current Medications Aspirin (Ecotrin) 81 mg PO DAILY [facility] Last Admin: 04/04/17 15:07 Dose: 81 mg Carvedilol (Coreg) 6.25 mg PO BID [facility] Last Admin: 04/04/17 11:05 Dose: 6.25 mg Clopidogrel Bisulfate (Plavix) 75 mg PO DAILY [facility] Last Admin: 04/04/17 11:05 Dose: 75 mg Famotidine (Pepcid) 20 mg PO BID [facility] Last Admin: 04/04/17 11:04 Dose: 20 mg Furosemide (Lasix) 40 mg IVP Q12 [facility] Last Admin: 04/04/17 11:04 Dose: 40 mg Gabapentin (Neurontin) 100 mg PO BID [facility] Last Admin: 04/04/17 13:38 Dose: 100 mg Heparin Sodium (Porcine) (Heparin) 5,000 units SC Q12 [facility] Last Admin: 04/04/17 11:04 Dose: 5,000 units Hydralazine HCl (Apresoline) 25 mg PO TID [facility] Last Admin: 04/04/17 13:37 Dose: 25 mg Insulin Detemir (Levemir) 33 unit SC HS [facility] Insulin Human Regular (Novolin R) 0 unit SC ACHS [facility] PRN Reason: Protocol Last Admin: 04/04/17 13:37 Dose: 5 unit Insulin Human Regular (Novolin R) 6 unit SC [facility] Isosorbide Mononitrate (Imdur) 30 mg PO DAILY [facility] Last Admin: 04/04/17 11:04 Dose: 30 mg Metolazone (Zaroxolyn) 2.5 mg PO DAILY [facility] Last Admin: 04/04/17 11:05 Dose: 2.5 mg Rosuvastatin Calcium (Crestor) 5 mg PO [facility] Last Admin: 04/03/17 22:11 Dose: 5 mg - Labs Labs: 04/04/17 08:32 04/04/17 08:32 PT 10.6 SECONDS (9.7-12.2) 04/03/17 11:39 INR 0.9 04/03/17 11:39 APTT 32 SECONDS (21-34) 04/03/17 11:39 - Constitutional Appears: Well, Non-toxic, No Acute Distress - Head Exam Head Exam: ATRAUMATIC, NORMAL INSPECTION, NORMOCEPHALIC - Eye Exam Eye Exam: EOMI, Normal appearance, PERRL - Neck Exam Neck Exam: Full ROM, Normal Inspection - Respiratory Exam Respiratory Exam: Rhonchi, NORMAL BREATHING PATTERN. absent: Rales, Wheezes, Respiratory Distress, Stridor Additional comments: mild ronchi - Cardiovascular Exam Cardiovascular Exam: REGULAR RHYTHM, RRR. absent: Gallop, Rubs, Murmur - GI/Abdominal Exam GI & Abdominal Exam: Soft, Normal Bowel Sounds. absent: Distended, Firm, Guarding, Rigid - Extremities Exam Extremities Exam: Full ROM, Normal Inspection. absent: Pedal Edema - Back Exam Back Exam: NORMAL INSPECTION - Neurological Exam Neurological Exam: Alert, Awake, Oriented x3 - Psychiatric Exam Psychiatric exam: Normal Affect, Normal Mood - Skin Skin Exam: Intact, Normal Color, Warm Assessment and Plan - Assessment and Plan (Free Text) Assessment: Assessment and Plan: 1). CHF Exacerbation/Hx CAD BNP is 4210 Echo done in March 2016 showed EF 51% Nuclear Stress Test March 2016 showed and EF of 30% Carvedilol 6.25 mg PO 2x/day Lasix 40 mg IV Q12H Isosorbide Mononitrate 30 mg PO 1x/day Metolazone 2.5 mg PO 1x/day F/U 2ED Echocardiogram F/U further recommendations Cardiology Dr. Gamez F/U Daily Weights, 7/12: 225 CT Chest: consistent with mild pulmonary edema/ CHF, linear atelectasis and or scarring of left upper lobe. cardiomegaly, no significant pericardial effusion. venous dopplers negative Aspirin 81 mg 2). Acute On Chronic Renal Insufficiency BUN/Cr currently at 68/3.4 and baseline Cr is 2.4 Renal U/S- no hydronephrosis, unremarkable Urine Protein:266 and Cr:25.5 Dr. Archuleta (nephro) recommends : continue present diuretics, serial chemistries , protein excretion rate 3). HTN Carvedilol, Isorbide, Lasix, Metolazone as above Lisinopril held due to renal insufficiency 4). HLD Crestor 5 mg PO QHS 5). DM 2 Levemir 33 units SC QHS (increased from 15U) Regualr insulin 6 u AC Regular ISS Gabapentin 100 mg PO 2x/day (decreased from 300 due to renal insufficiency) 6). R/O iron deficiency anemia MCH and MCHC low, RDW high F/U iron, tibc, % iron sat, ferritin 7). Prophylactic Measure Heparin 5,000 Units SC Q12H Protonix 40 mg PO 1x/day Carb Consistent Diet Fluid Restrict 1200 per day <Hermelindo Jo - Last Filed: 04/04/17 19:26> Objective - Vital Signs/Intake and Output Vital Signs (last 24 hours): Temp Pulse Resp BP Pulse Ox 97.5 F L 58 L 20 121/67 94 L 04/04/17 17:30 04/04/17 17:30 04/04/17 17:30 04/04/17 17:30 04/04/17 17:30 Intake and Output: 04/04/17 04/05/17 18:59 06:59 Intake Total 200 Balance 200 - Medications Medications: Current Medications Aspirin (Ecotrin) 81 mg PO DAILY [facility] Last Admin: 04/04/17 15:07 Dose: 81 mg Carvedilol (Coreg) 6.25 mg PO BID [facility] Last Admin: 04/04/17 17:40 Dose: 6.25 mg Clopidogrel Bisulfate (Plavix) 75 mg PO DAILY [facility] Last Admin: 04/04/17 11:05 Dose: 75 mg Famotidine (Pepcid) 20 mg PO BID [facility] Last Admin: 04/04/17 17:40 Dose: 20 mg Furosemide (Lasix) 40 mg IVP Q12 [facility] Last Admin: 04/04/17 11:04 Dose: 40 mg Gabapentin (Neurontin) 100 mg PO BID [facility] Last Admin: 04/04/17 17:39 Dose: 100 mg Heparin Sodium (Porcine) (Heparin) 5,000 units SC Q12 [facility] Last Admin: 04/04/17 11:04 Dose: 5,000 units Hydralazine HCl (Apresoline) 25 mg PO TID [facility] Last Admin: 04/04/17 17:39 Dose: 25 mg Insulin Detemir (Levemir) 33 unit SC HS [facility] Insulin Human Regular (Novolin R) 0 unit SC ACHS [facility] PRN Reason: Protocol Last Admin: 04/04/17 17:35 Dose: 4 unit Insulin Human Regular (Novolin R) 6 unit SC [facility] Last Admin: 04/04/17 17:34 Dose: 6 unit Isosorbide Mononitrate (Imdur) 30 mg PO DAILY [facility] Last Admin: 04/04/17 11:04 Dose: 30 mg Metolazone (Zaroxolyn) 2.5 mg PO DAILY [facility] Last Admin: 04/04/17 11:05 Dose: 2.5 mg Rosuvastatin Calcium (Crestor) 5 mg PO HS [facility] Last Admin: 04/03/17 22:11 Dose: 5 mg - Labs Labs: 04/04/17 08:32 04/04/17 08:32 PT 10.6 SECONDS (9.7-12.2) 04/03/17 11:39 INR 0.9 04/03/17 11:39 APTT 32 SECONDS (21-34) 04/03/17 11:39 Attending/Attestation - Attestation I have personally seen and examined this patient.: Yes I have fully participated in the care of the patient.: Yes I have reviewed all pertinent clinical information, including history, physical exam and plan: Yes Notes (Text): 04/04/17 19:17 Patient was seen and examined at 4:35 PM 04/04/17 Assessment and Plan were thoroughly gone over with the Electrolysis Investigator. On Respiratory Exam compared to yesterday, the inspiratoy rhonchi are less and now confined to the bibasilar area. There is also decreased amount of edema of the bilateral legs. Lantus has been increased to 33 units SC QHS and Regular Insulin 6 units AC Meals based upon Accuchecks for the past 24 hours. Patient is also on Hydralazine 25 mg PO TID F/U 2D Echocardiogram F/U 24 Hour Collection for Protein for possible Nephrotic Syndrome. Hermelindo Jo D.O.
[2017-04-04 18:01] LABS: IRON 20 ug/dL (37-170)
[2017-04-04 18:10] LABS: % IRON SATURATION 8 (20-55); TOTAL IRON BINDING CAPACITY 253 ug/dL (250-450)
[2017-04-04] MEDS ORDERED: Insulin Detemir 100 units/ml Vial (Levemir) SC SCH (22:00)
--- NOTE | 2017-04-04 22:43 | CP.PCM.HP ---
History of Present Illness - History of Present Illness History of Present Illness: CC: SOB HPI: 66F with PMHx of CAD, CHF, HTN, HLD, DM presents to the ED with SOB. As per daughter that was at bedside, patient returned from [facility] last week. For the past month she has been feeling fatigued, SOB, difficulty ambulating. She is compliant with her medications, but she does not adhere to the limit in fluid intake and salt intake. Her blood pressures the past 3 days have been elevated, prompting her visit to the ED. She sleeps with 2 pillows at night, denied PND. She admitted to a 20lb weight gain the past few months. Denied fever , chills, headache, chest pain, abdominal pain, n/v/d/c, or urinary symptoms. PMHx: CAD, CHF, HTN, HLD, DM PSHx: CABG, hysterectomy Meds: as per NOV All: NKDA SHx: Denied x3 FHx: Unremarkable Present on Admission - Present on Admission Any Indicators Present on Admission: Yes Past Patient History - Infectious Disease Hx of Infectious Diseases: None - Tetanus Immunizations Tetanus Immunization: Unknown - Past Medical History & Family History Past Medical History?: Yes Past Family History: Reviewed and not pertinent - Past Social History Smoking Status: Never Smoked Chewing Tobacco Use: No Cigar Use: No Alcohol: None Drugs: Denies Home Situation {Lives}: With Family Domestic Violence: Negative - CARDIAC Hx Congestive Heart Failure: Yes Hx Hypercholesterolemia: Yes Hx Hypertension: Yes - PULMONARY Hx Asthma: No (Pt denies) - NEUROLOGICAL Hx Neurological Disorder: No - HEENT Other/Comment: BOTH EYES - BLURRY - RENAL Hx Chronic Kidney Disease: No - ENDOCRINE/METABOLIC Hx Diabetes Mellitus Type 2: Yes - HEMATOLOGICAL/ONCOLOGICAL Hx Blood Disorders: No - INTEGUMENTARY Hx Dermatological Problems: No - MUSCULOSKELETAL/RHEUMATOLOGICAL Hx Falls: No - GASTROINTESTINAL Hx Gastritis: No - GENITOURINARY/GYNECOLOGICAL Hx Genitourinary Disorders: No - PSYCHIATRIC Hx Substance Use: No - SURGICAL HISTORY Hx Coronary Artery Bypass Graft: Yes (09/02/2015) - ANESTHESIA Hx Anesthesia: Yes Hx Anesthesia Reactions: No Hx Malignant Hyperthermia: No Meds Home Medications: Home Medication List Medication Instructions Recorded Confirmed Type Carvedilol [Coreg] 6.25 mg PO BID #60 tab 04/10/17 Rx Clopidogrel [Plavix] 75 mg PO DAILY #30 tab 04/10/17 Rx Furosemide [Lasix] 40 mg PO DAILY #30 04/10/17 Rx Gabapentin [Neurontin] 100 mg PO BID #30 cap 04/10/17 Rx Insulin Detemir [Levemir] 52 unit SC HS #2 vial 04/10/17 Rx Insulin Human Regular [Novolin R] 15 unit SC AC #2 vial 04/10/17 Rx Isosorbide Mononitrate [Imdur] 30 mg PO DAILY #30 tab 04/10/17 Rx Simvastatin 20 mg PO DAILY #30 tablet 04/10/17 Rx Sodium Polystyrene Sulfonate 15 gm PO DAILY #1 bottle 04/10/17 Rx [kayeXALATE Oral Susp] amLODIPine [Norvasc] 5 mg PO DAILY #30 tab 04/10/17 Rx hydrALAZINE [Apresoline] 25 mg PO TID #90 tab 04/10/17 Rx Allergies/Adverse Reactions: Allergies Allergy/AdvReac Type Severity Reaction Status Date / Time No Known Allergies Allergy Verified 04/02/17 23:27 Results - Vital Signs Recent Vital Signs: Last Vital Signs Temp 97.5 F L 04/04/17 17:30 Pulse 58 L 04/04/17 17:30 Resp 20 04/04/17 17:30 BP 103/64 04/04/17 22:15 Pulse Ox 94 L 04/04/17 17:30 - Labs Result Diagrams: 04/10/17 11:55 04/10/17 14:01 Labs: Laboratory Results - last 24 hr 04/04/17 04/04/17 04/04/17 06:39 08:32 08:32 WBC 10.2 RBC 4.68 Hgb 12.3 Hct 38.3 MCV 81.8 MCH 26.3 L MCHC 32.2 L RDW 15.3 H Plt Count 250 MPV 9.9 Neut % (Auto) 60.0 Lymph % (Auto) 27.7 Hubbard % (Auto) 7.0 Eos % (Auto) 4.2 H Baso % (Auto) 1.1 Neut # 6.1 Lymph # 2.8 Hubbard # 0.7 Eos # 0.4 Baso # 0.1 Sodium 136 Potassium 4.7 Chloride 103 Carbon Dioxide 24 Anion Gap 14 BUN 67 H Creatinine 3.6 H Est GFR ( Amer) 15 Est GFR (Non-Af Amer) 13 POC Glucose (mg/dL) 152 H Random Glucose 130 H Calcium 8.2 L Phosphorus 6.5 H Magnesium 2.2 Iron TIBC % Saturation Ferritin Total Bilirubin 0.5 AST 13 L ALT 23 Alkaline Phosphatase 72 Total Protein 6.4 Albumin 2.9 L Globulin 3.5 Albumin/Globulin Ratio 0.8 L 04/04/17 04/04/17 04/04/17 10:56 16:46 17:26 WBC RBC Hgb Hct MCV MCH MCHC RDW Plt Count MPV Neut % (Auto) Lymph % (Auto) Hubbard % (Auto) Eos % (Auto) Baso % (Auto) Neut # Lymph # Hubbard # Eos # Baso # Sodium Potassium Chloride Carbon Dioxide Anion Gap BUN Creatinine Est GFR ( Amer) Est GFR (Non-Af Amer) POC Glucose (mg/dL) 358 H 312 H Random Glucose Calcium Phosphorus Magnesium Iron 20 L TIBC 253 % Saturation 8 L Ferritin Total Bilirubin AST ALT Alkaline Phosphatase Total Protein Albumin Globulin Albumin/Globulin Ratio 04/04/17 04/04/17 17:26 21:47 WBC RBC Hgb Hct MCV MCH MCHC RDW Plt Count MPV Neut % (Auto) Lymph % (Auto) Hubbard % (Auto) Eos % (Auto) Baso % (Auto) Neut # Lymph # Hubbard # Eos # Baso # Sodium Potassium Chloride Carbon Dioxide Anion Gap BUN Creatinine Est GFR ( Amer) Est GFR (Non-Af Amer) POC Glucose (mg/dL) 326 H Random Glucose Calcium Phosphorus Magnesium Iron TIBC % Saturation Ferritin 92.8 Total Bilirubin AST ALT Alkaline Phosphatase Total Protein Albumin Globulin Albumin/Globulin Ratio Assessment & Plan (1) Acute on chronic diastolic CHF (congestive heart failure) Status: Acute (2) Anemia Status: Acute (3) CKD stage 4 secondary to hypertension Status: Acute
--- NOTE | 2017-04-04 22:46 | CP.PCM.PN ---
Subjective - Date & Time of Evaluation Date of Evaluation: 04/04/17 Time of Evaluation: 20:20 - Subjective Subjective: Pt seen/examined at bedside. No acute distress. No events overnight. Pt says she is feeling better. No fevers, chills, vomiting, diarrhea, chest pain, sob. Objective - Vital Signs/Intake and Output Vital Signs (last 24 hours): Temp Pulse Resp BP Pulse Ox 97.5 F L 58 L 20 103/64 94 L 04/04/17 17:30 04/04/17 17:30 04/04/17 17:30 04/04/17 22:15 04/04/17 17:30 Intake and Output: 04/04/17 04/05/17 18:59 06:59 Intake Total 200 Balance 200 - Medications Medications: Current Medications Aspirin (Ecotrin) 81 mg PO DAILY [facility] Last Admin: 04/04/17 15:07 Dose: 81 mg Carvedilol (Coreg) 6.25 mg PO BID [facility] Last Admin: 04/04/17 17:40 Dose: 6.25 mg Clopidogrel Bisulfate (Plavix) 75 mg PO DAILY [facility] Last Admin: 04/04/17 11:05 Dose: 75 mg Famotidine (Pepcid) 20 mg PO BID [facility] Last Admin: 04/04/17 17:40 Dose: 20 mg Furosemide (Lasix) 40 mg IVP Q12 [facility] Last Admin: 04/04/17 22:15 Dose: 40 mg Gabapentin (Neurontin) 100 mg PO BID [facility] Last Admin: 04/04/17 17:39 Dose: 100 mg Heparin Sodium (Porcine) (Heparin) 5,000 units SC Q12 [facility] Last Admin: 04/04/17 22:14 Dose: 5,000 units Hydralazine HCl (Apresoline) 25 mg PO TID [facility] Last Admin: 04/04/17 17:39 Dose: 25 mg Insulin Detemir (Levemir) 33 unit SC HS [facility] Last Admin: 04/04/17 22:15 Dose: 33 unit Insulin Human Regular (Novolin R) 0 unit SC ACHS [facility] PRN Reason: Protocol Last Admin: 04/04/17 22:15 Dose: Not Given Insulin Human Regular (Novolin R) 6 unit SC AC [facility] Last Admin: 04/04/17 17:34 Dose: 6 unit Isosorbide Mononitrate (Imdur) 30 mg PO DAILY [facility] Last Admin: 04/04/17 11:04 Dose: 30 mg Metolazone (Zaroxolyn) 2.5 mg PO DAILY [facility] Last Admin: 04/04/17 11:05 Dose: 2.5 mg Rosuvastatin Calcium (Crestor) 5 mg PO [facility] Last Admin: 04/04/17 22:14 Dose: 5 mg - Labs Labs: 04/04/17 08:32 04/04/17 08:32 PT 10.6 SECONDS (9.7-12.2) 04/03/17 11:39 INR 0.9 04/03/17 11:39 APTT 32 SECONDS (21-34) 04/03/17 11:39
[2017-04-05 07:38] LABS: BASO # 0.1 K/uL (0.0-0.2); BASO % 0.9 % (0.0-2.0); EOS # 0.4 K/uL (0.0-0.7); EOS % 3.6 % (0.0-4.0); LYMPH # 2.6 K/uL (1.0-4.3); LYMPH % 26.3 % (20.0-40.0); MEAN CELL VOLUME 81.5 fL (81.0-99.0); MEAN CORPUSCULAR HEMOGLOBIN 26.4 pg (27.0-31.0); MEAN CORPUSCULAR HGB CONC 32.4 g/dL (33.0-37.0); MONO # 0.8 K/uL (0.0-0.8); MONO % 8.5 % (0.0-10.0); NEUT % 60.7 % (50.0-75.0); NRBC % 0.1 % (0.0-2.0); RBC 4.54 Mil/uL (3.80-5.20); WHITE BLOOD COUNT 9.9 K/uL (4.8-10.8)
[2017-04-05 07:43] LABS: ALBUMIN 2.9 g/dL (3.5-5.0)
[2017-04-05 07:46] LABS: ALB/GLOB RATIO 0.9 (1.0-2.1); CALCIUM 7.7 mg/dl (8.6-10.4)
[2017-04-05 07:47] LABS: MAGNESIUM 2.3 mg/dL (1.6-2.3)
[2017-04-05] MEDS: (Novolin R) Insulin Human Regular 100 units/ml vial SC SCH ×7 (08:53→21:39)
--- NOTE | 2017-04-05 09:44 | CP.PCM.PN ---
Subjective - Date & Time of Evaluation Date of Evaluation: 04/05/17 Time of Evaluation: 09:41 - Subjective Subjective: Lss dyspneic UO not recorded Creat increased to 3.9- likely due to overdiuresis; cardiorenal syndrome TSAT only 8% No CPs, n, v, f, c Objective - Vital Signs/Intake and Output Vital Signs (last 24 hours): Temp Pulse Resp BP Pulse Ox 97.9 F 58 L 20 157/81 H 95 04/05/17 07:00 04/05/17 07:00 04/05/17 07:00 04/05/17 07:00 04/05/17 07:00 Intake and Output: 04/05/17 04/05/17 06:59 18:59 Intake Total 240 Balance 240 - Medications Medications: Current Medications Aspirin (Ecotrin) 81 mg PO DAILY [facility] Last Admin: 04/04/17 15:07 Dose: 81 mg Carvedilol (Coreg) 6.25 mg PO BID [facility] Last Admin: 04/04/17 17:40 Dose: 6.25 mg Clopidogrel Bisulfate (Plavix) 75 mg PO DAILY [facility] Last Admin: 04/04/17 11:05 Dose: 75 mg Famotidine (Pepcid) 20 mg PO BID [facility] Last Admin: 04/04/17 17:40 Dose: 20 mg Furosemide (Lasix) 40 mg IVP Q12 [facility] Last Admin: 04/04/17 22:15 Dose: 40 mg Gabapentin (Neurontin) 100 mg PO BID [facility] Last Admin: 04/04/17 17:39 Dose: 100 mg Heparin Sodium (Porcine) (Heparin) 5,000 units SC Q12 [facility] Last Admin: 04/04/17 22:14 Dose: 5,000 units Hydralazine HCl (Apresoline) 25 mg PO TID [facility] Last Admin: 04/04/17 17:39 Dose: 25 mg Insulin Detemir (Levemir) 33 unit SC HS [facility] Last Admin: 04/04/17 22:15 Dose: 33 unit Insulin Human Regular (Novolin R) 0 unit SC ACHS [facility] PRN Reason: Protocol Last Admin: 04/05/17 08:53 Dose: 3 unit Insulin Human Regular (Novolin R) 6 unit SC AC [facility] Last Admin: 04/05/17 08:54 Dose: 6 unit Isosorbide Mononitrate (Imdur) 30 mg PO DAILY [facility] Last Admin: 04/04/17 11:04 Dose: 30 mg Metolazone (Zaroxolyn) 2.5 mg PO DAILY [facility] Last Admin: 04/04/17 11:05 Dose: 2.5 mg Rosuvastatin Calcium (Crestor) 5 mg PO HS [facility] Last Admin: 04/04/17 22:14 Dose: 5 mg - Labs Labs: 04/05/17 07:24 04/05/17 04:00 PT 10.6 SECONDS (9.7-12.2) 04/03/17 11:39 INR 0.9 04/03/17 11:39 APTT 32 SECONDS (21-34) 04/03/17 11:39 - Constitutional Appears: No Acute Distress, Chronically Ill - Head Exam Head Exam: ATRAUMATIC, NORMAL INSPECTION - Eye Exam Eye Exam: EOMI, Normal appearance - Neck Exam Neck Exam: Normal Inspection. absent: Tenderness - Respiratory Exam Respiratory Exam: Rales, NORMAL BREATHING PATTERN - Cardiovascular Exam Cardiovascular Exam: REGULAR RHYTHM, +S1 - GI/Abdominal Exam GI & Abdominal Exam: Soft. absent: Tenderness - Extremities Exam Extremities Exam: Normal Inspection. absent: Tenderness - Neurological Exam Neurological Exam: Alert, CN II-XII Intact - Skin Skin Exam: Dry, Warm Assessment and Plan (1) Proteinuria Status: Acute (2) Type 2 diabetes mellitus with diabetic nephropathy Status: Acute (3) Acute on chronic diastolic CHF (congestive heart failure) Status: Acute (4) CKD (chronic kidney disease) stage 4, GFR 15-29 ml/min Status: Acute (5) Cardiomyopathy Status: Acute (6) Cardiorenal syndrome Status: Acute - Assessment and Plan (Free Text) Plan: Decrease diuretics now IV Fe Check protein excretion rate
--- NOTE | 2017-04-05 10:17 | VASCLAB ---
PROCEDURE: Lower Extremity Venous Duplex Exam. HISTORY: Bilateral worsening edema x 1 month, Dif ambulatin PRIORS: Last exam 09/14/2015 TECHNIQUE: Bilateral common femoral, femoral, popliteal and posterior tibial, peroneal and great saphenous veins were evaluated. Flow was assessed with color Doppler, compressibility, assessment of phasic flow and augmentation response. Report prepared by Raj Cardenas, TARIK, RVT FINDINGS: RIGHT: 1. Common Femoral Vein: 1.1. Compressibility - Fully compressible: Thrombus - None : Flow - Phasic: Augmentation -Normal: Reflux - None. 2. Femoral Vein: 2.1. Compressibility - Fully compressible: Thrombus - None : Flow - Phasic: Augmentation -Normal: Reflux - None. 3. Popliteal Vein: 3.1. Compressibility - Fully compressible: Thrombus - None : Flow - Phasic: Augmentation -Normal: Reflux - None. 4. Posterior Tibial Vein: 4.1. Compressibility - Fully compressible: Thrombus - None: Flow - Phasic: Augmentation -Normal: Reflux - None. 5. Peroneal Vein: 5.1. Compressibility - Fully compressible: Thrombus - None: Flow - Phasic: Augmentation -Normal: Reflux - None. 6. Great Saphenous Vein: 6.1. Compressibility - Fully compressible: Thrombus - None: Flow - Phasic: Augmentation - Normal: Reflux - None. LEFT: 1. Common Femoral Vein: 1.1. Compressibility - Fully compressible: Thrombus - None: Flow - Phasic: Augmentation -Normal: Reflux - None. 2. Femoral Vein: 2.1. Compressibility - Fully compressible: Thrombus - None: Flow - Phasic: Augmentation -Normal: Reflux - None. 3. Popliteal Vein: 3.1. Compressibility - Fully compressible: Thrombus - None : Flow - Phasic: Augmentation -Normal: Reflux - None. 4. Posterior Tibial Vein: 4.1. Compressibility - Fully compressible: Thrombus - None: Flow - Phasic: Augmentation -Normal: Reflux - None. 5. Peroneal Vein: 5.1. Compressibility - Fully compressible: Thrombus - None: Flow - Phasic: Augmentation -Normal: Reflux - None. 6. Great Saphenous Vein: 6.1. Compressibility - Fully compressible: Thrombus - None: Flow - Phasic: Augmentation - Normal: Reflux - None. OTHER FINDINGS: Right: None significant. Left: None significant. IMPRESSION: Right: No evidence of deep or superficial vein thrombosis of the right lower extremity. Normal valve function noted of the right side. Left: No evidence of deep or superficial vein thrombosis of the left lower extremity. Normal valve function noted of the left side.
[2017-04-05] MEDS: Ferric Sodium Gluconat Complex 62.5 mg/5 ml Vial IVPB SCH (10:19)
--- NOTE | 2017-04-05 12:47 | CP.PCM.PN ---
<Unique Marti - Last Filed: 04/05/17 15:45> Subjective - Date & Time of Evaluation Date of Evaluation: 04/05/17 Time of Evaluation: 08:00 - Subjective Subjective: PGY1- Medicine Note- Dr. Jo's Service Patient seen and visited at bedside today with complaints of headache and dizziness. Headache is confined to the forehead and described as 5/10 constant pain and pressure that radiates bilaterally. Headache started yesterday and it is the first time she is experiencing this type of headache. Denies exacerbating and remitting factors. Patient complains of dizziness when standing up to use the bathroom. Describes dizziness as light headedness and denies syncope or feeling like she may fall. Patient reports last bowel movement was yesterday, normal urination and appetite. Patient denies chest pain, shortness of breath, fever, chills, changes in vision, nausea, vomiting, numbness in extremities. Objective - Vital Signs/Intake and Output Vital Signs (last 24 hours): Temp Pulse Resp BP Pulse Ox 97.9 F 60 20 148/73 95 04/05/17 07:00 04/05/17 10:18 04/05/17 07:00 04/05/17 10:21 04/05/17 07:00 Intake and Output: 04/05/17 04/05/17 06:59 18:59 Intake Total 240 Balance 240 - Medications Medications: Current Medications Aspirin (Ecotrin) 81 mg PO DAILY [facility] Last Admin: 04/05/17 10:23 Dose: 81 mg Carvedilol (Coreg) 6.25 mg PO BID [facility] Last Admin: 04/05/17 10:22 Dose: 6.25 mg Clopidogrel Bisulfate (Plavix) 75 mg PO DAILY [facility] Last Admin: 04/05/17 10:21 Dose: 75 mg Famotidine (Pepcid) 20 mg PO DAILY [facility] Ferric Sodium Gluconate Complex (Ferrlecit) 125 mg IVPB DAILY [facility] Stop: 04/13/17 10:01 Last Admin: 04/05/17 10:19 Dose: 125 mg Furosemide (Lasix) 40 mg PO DAILY [facility] Last Admin: 04/05/17 10:21 Dose: 40 mg Gabapentin (Neurontin) 100 mg PO BID [facility] Last Admin: 04/05/17 10:21 Dose: 100 mg Heparin Sodium (Porcine) (Heparin) 5,000 units SC Q12 [facility] Last Admin: 04/05/17 10:21 Dose: 5,000 units Hydralazine HCl (Apresoline) 25 mg PO TID [facility] Last Admin: 04/05/17 10:21 Dose: 25 mg Insulin Detemir (Levemir) 33 unit SC HS [facility] Last Admin: 04/04/17 22:15 Dose: 33 unit Insulin Human Regular (Novolin R) 0 unit SC ACHS [facility] PRN Reason: Protocol Last Admin: 04/05/17 08:53 Dose: 3 unit Insulin Human Regular (Novolin R) 6 unit SC AC [facility] Last Admin: 04/05/17 08:54 Dose: 6 unit Isosorbide Mononitrate (Imdur) 30 mg PO DAILY [facility] Last Admin: 04/05/17 10:22 Dose: 30 mg Rosuvastatin Calcium (Crestor) 5 mg PO HS [facility] Last Admin: 04/04/17 22:14 Dose: 5 mg - Labs Labs: 04/05/17 07:24 04/05/17 04:00 PT 10.6 SECONDS (9.7-12.2) 04/03/17 11:39 INR 0.9 04/03/17 11:39 APTT 32 SECONDS (21-34) 04/03/17 11:39 - Constitutional Appears: Well, Non-toxic, No Acute Distress - Head Exam Head Exam: ATRAUMATIC, NORMAL INSPECTION, NORMOCEPHALIC - Eye Exam Eye Exam: EOMI, Normal appearance, PERRL - ENT Exam ENT Exam: Mucous Membranes Moist, Normal Exam - Neck Exam Neck Exam: Full ROM, Normal Inspection - Respiratory Exam Respiratory Exam: Rales Additional comments: mild rales in lower lobes b/l - Cardiovascular Exam Cardiovascular Exam: REGULAR RHYTHM, RRR - GI/Abdominal Exam GI & Abdominal Exam: Soft, Normal Bowel Sounds. absent: Distended, Firm, Guarding, Rigid, Tenderness - Extremities Exam Extremities Exam: Full ROM, Pedal Edema Additional comments: b/l pedal edema - Back Exam Back Exam: NORMAL INSPECTION - Neurological Exam Neurological Exam: Alert, Awake, Oriented x3 - Psychiatric Exam Psychiatric exam: Normal Affect, Normal Mood - Skin Skin Exam: Intact, Normal Color, Warm Assessment and Plan - Assessment and Plan (Free Text) Assessment: 1). CHF Exacerbation/Hx CAD BNP is 4210 Echo done in March 2016 showed EF 51% Nuclear Stress Test March 2016 showed and EF of 30% Carvedilol 6.25 mg PO 2x/day Lasix 40 mg IV daily (decreased from BID due to renal insufficiency) Isosorbide Mononitrate 30 mg PO 1x/day Metolazone 2.5 mg PO 1x/day stopped on 04/[address] Archuleta F/U 2ED Echocardiogram F/U further recommendations Cardiology Dr. Gamez F/U Daily Weights, 04/04: 225, 04/05: 228.7 CT Chest: consistent with mild pulmonary edema/ CHF, linear atelectasis and or scarring of left upper lobe. cardiomegaly, no significant pericardial effusion. venous dopplers negative Aspirin 81 mg 2). Acute On Chronic Renal Insufficiency BUN/Cr currently at 68/3.4 and baseline Cr is 2.4 Renal U/S- no hydronephrosis, unremarkable Urine Protein:266 and Cr:25.5 Dr. Archuleta (nephro) recommends : decreased lasix to daily (04/05), f/u protein excretion rate, iv iron added 3). HTN Carvedilol, Isorbide, Lasix, as above. Metolazone stopped on 04/05 Lisinopril held due to renal insufficiency 4). HLD Crestor 5 mg PO QHS 5). DM 2 04/05: Levemir 52 units SC QHS (increased from 33U) and Regualr insulin 12 u AC ( from 6 u AC) Regular ISS Gabapentin 100 mg PO 2x/day (decreased from 300 due to renal insufficiency) 6). R/O iron deficiency anemia MCH and MCHC low, RDW high iron: 20, TIBC: 253, %saturation: 8, Ferritin 92.8 7). Prophylactic Measure Heparin 5,000 Units SC Q12H Protonix 40 mg PO 1x/day Carb Consistent Diet Fluid Restrict 1200 per day <Hermelindo Jo - Last Filed: 04/05/17 19:07> Objective - Vital Signs/Intake and Output Vital Signs (last 24 hours): Temp Pulse Resp BP Pulse Ox 97.4 F L 66 20 151/76 H 98 04/05/17 16:40 04/05/17 17:35 04/05/17 16:40 04/05/17 17:35 07/13/17 18:17 Intake and Output: 04/05/17 04/06/17 18:59 06:59 Intake Total 400 Balance 400 - Medications Medications: Current Medications Aspirin (Ecotrin) 81 mg PO DAILY [facility] Last Admin: 04/05/17 10:23 Dose: 81 mg Carvedilol (Coreg) 6.25 mg PO BID [facility] Last Admin: 04/05/17 17:34 Dose: 6.25 mg Clopidogrel Bisulfate (Plavix) 75 mg PO DAILY [facility] Last Admin: 04/05/17 10:21 Dose: 75 mg Famotidine (Pepcid) 20 mg PO DAILY [facility] Ferric Sodium Gluconate Complex (Ferrlecit) 125 mg IVPB DAILY [facility] Stop: 04/13/17 10:01 Last Admin: 04/05/17 10:19 Dose: 125 mg Furosemide (Lasix) 40 mg PO DAILY [facility] Last Admin: 04/05/17 10:21 Dose: 40 mg Gabapentin (Neurontin) 100 mg PO BID [facility] Last Admin: 04/05/17 17:34 Dose: 100 mg Heparin Sodium (Porcine) (Heparin) 5,000 units SC Q12 [facility] Last Admin: 04/05/17 10:21 Dose: 5,000 units Hydralazine HCl (Apresoline) 25 mg PO TID [facility] Last Admin: 04/05/17 17:34 Dose: 25 mg Insulin Detemir (Levemir) 52 unit SC HS [facility] Insulin Human Regular (Novolin R) 0 unit SC ACHS [facility] PRN Reason: Protocol Last Admin: 04/05/17 16:58 Dose: 3 unit Insulin Human Regular (Novolin R) 12 unit SC AC [facility] Last Admin: 04/05/17 16:57 Dose: 12 unit Isosorbide Mononitrate (Imdur) 30 mg PO DAILY [facility] Last Admin: 04/05/17 10:22 Dose: 30 mg Rosuvastatin Calcium (Crestor) 5 mg PO HS [facility] Last Admin: 04/04/17 22:14 Dose: 5 mg - Labs Labs: 04/05/17 07:24 04/05/17 04:00 PT 10.6 SECONDS (9.7-12.2) 04/03/17 11:39 INR 0.9 04/03/17 11:39 APTT 32 SECONDS (21-34) 04/03/17 11:39 Attending/Attestation - Attestation I have personally seen and examined this patient.: Yes I have fully participated in the care of the patient.: Yes I have reviewed all pertinent clinical information, including history, physical exam and plan: Yes Notes (Text): 04/05/17 19:06 Patient was seen and examined at 1 PM 04/05/17 563-A Please note that Lasix was decreased to 40 mg PO and NOT IV I updated patient's Daughter Vini [phone]. Will discharge patient once cleared by Cardiology and Nephrology. Hermelindo Jo D.O.
--- NOTE | 2017-04-05 12:59 | CP.PCM.PN ---
Subjective - Date & Time of Evaluation Date of Evaluation: 04/05/17 Time of Evaluation: 13:00 - Subjective Subjective: Progress note. Cardiology, Dr. Gamez Pt seen/examined at bedside. No acute distress. No events overnight. No fevers, chills, vomiting, diarrhea, syncope, chest pain. Objective - Vital Signs/Intake and Output Vital Signs (last 24 hours): Temp Pulse Resp BP Pulse Ox 97.9 F 60 20 148/73 95 04/05/17 07:00 04/05/17 10:18 04/05/17 07:00 04/05/17 10:21 04/05/17 07:00 Intake and Output: 04/05/17 04/05/17 06:59 18:59 Intake Total 240 Balance 240 - Medications Medications: Current Medications Aspirin (Ecotrin) 81 mg PO DAILY [facility] Last Admin: 04/05/17 10:23 Dose: 81 mg Carvedilol (Coreg) 6.25 mg PO BID [facility] Last Admin: 04/05/17 10:22 Dose: 6.25 mg Clopidogrel Bisulfate (Plavix) 75 mg PO DAILY [facility] Last Admin: 04/05/17 10:21 Dose: 75 mg Famotidine (Pepcid) 20 mg PO DAILY [facility] Ferric Sodium Gluconate Complex (Ferrlecit) 125 mg IVPB DAILY [facility] Stop: 04/13/17 10:01 Last Admin: 04/05/17 10:19 Dose: 125 mg Furosemide (Lasix) 40 mg PO DAILY [facility] Last Admin: 04/05/17 10:21 Dose: 40 mg Gabapentin (Neurontin) 100 mg PO BID [facility] Last Admin: 04/05/17 10:21 Dose: 100 mg Heparin Sodium (Porcine) (Heparin) 5,000 units SC Q12 [facility] Last Admin: 04/05/17 10:21 Dose: 5,000 units Hydralazine HCl (Apresoline) 25 mg PO TID [facility] Last Admin: 04/05/17 10:21 Dose: 25 mg Insulin Detemir (Levemir) 33 unit SC HS [facility] Last Admin: 04/04/17 22:15 Dose: 33 unit Insulin Human Regular (Novolin R) 0 unit SC ACHS [facility] PRN Reason: Protocol Last Admin: 04/05/17 08:53 Dose: 3 unit Insulin Human Regular (Novolin R) 6 unit SC AC [facility] Last Admin: 04/05/17 08:54 Dose: 6 unit Isosorbide Mononitrate (Imdur) 30 mg PO DAILY [facility] Last Admin: 04/05/17 10:22 Dose: 30 mg Rosuvastatin Calcium (Crestor) 5 mg PO HS [facility] Last Admin: 04/04/17 22:14 Dose: 5 mg - Labs Labs: 04/05/17 07:24 04/05/17 04:00 PT 10.6 SECONDS (9.7-12.2) 04/03/17 11:39 INR 0.9 04/03/17 11:39 APTT 32 SECONDS (21-34) 04/03/17 11:39 - Constitutional Appears: Non-toxic, No Acute Distress - Head Exam Head Exam: ATRAUMATIC, NORMAL INSPECTION, NORMOCEPHALIC - Eye Exam Eye Exam: EOMI - ENT Exam ENT Exam: Mucous Membranes Moist - Neck Exam Neck Exam: Full ROM, Normal Inspection - Respiratory Exam Respiratory Exam: Rhonchi. absent: Respiratory Distress - Cardiovascular Exam Cardiovascular Exam: +S1, +S2 - GI/Abdominal Exam GI & Abdominal Exam: Soft, Normal Bowel Sounds. absent: Tenderness - Back Exam Back Exam: NORMAL INSPECTION - Neurological Exam Neurological Exam: Alert, Awake, Oriented x3 - Psychiatric Exam Psychiatric exam: Normal Affect, Normal Mood - Skin Skin Exam: Dry, Intact, Normal Color, Warm Assessment and Plan - Assessment and Plan (Free Text) Assessment: A/P CHF exacerbation -continue coreg -lasix 40 po daily -heparin 5000 q 12 -hydralazine 25 po tid -imdur 30 daily -dc metolazone -crestor daily -echo pending -avoid overdiuresis -negative balance -heart healthy diet
[2017-04-05 15:27] LABS: URINE 24 HOUR TOTAL PROTEIN 2688.5 mg/24hr (42-225)
--- NOTE | 2017-04-05 15:33 | CARD ---
APPROVED REPORT EKG Measurement Heart [id number] [id number] <Conclusion> Normal sinus rhythm Left axis deviation Septal infarct, age undetermined Inferior infarct, age undetermined Abnormal ECG
[2017-04-05] MEDS: Insulin Detemir 100 units/ml Vial (Levemir) SC SCH (21:37)
--- NOTE | 2017-04-06 07:55 | CARD ---
APPROVED REPORT EXAM: Two-dimensional and M-mode echocardiogram with Doppler and color Doppler. Other Information Quality : GoodRhythm : NSR INDICATION Congestive Heart Failure Non STEMI CKD RISK FACTORS Hypertension Hyperlipidemia Diabetes M-Mode DIMENSIONS RVDd3.12 (2.1-3.2cm)Left Atrium (MM)4.18 (2.5-4.0cm) IVSd1.25 (0.7-1.1cm)Aortic Root2.89 (2.2-3.7cm) LVDd4.26 (4.0-5.6cm)Aortic Cusp Exc.1.99 (1.5-2.0cm) PWd0.86 (0.7-1.1cm)FS (%) 21 % LVDs3.36 (2.0-3.8cm)LVEF (%)43 (>50%) Mitral Valve MV E Kiymngcm874.3cm/sMV A Lpzofmge317.7cm/sE/A ratio1.0 TDI E/Lateral E'0.0E/Medial E'0.0 Tricuspid Valve TR Peak Psacinxt068jc/sTR Peak Gr.[id number] <Conclusion> Left ventricle: thickness:upper limit of normal; size: normal; overall ejection fraction:43%: diastolic filling pressures: elevated Mitral valve: annulus: normal: leaflets: normal: excursion: normal; no significant trans-mitral gradient: mild incompetence: left atrium: dilated Aortic valve: leaflets: mild calcific thickening; excursion: normal; no significant trans-aortic gradient: No significant incompetence: aortic root: normal Right sided Structures: Pulmonary valve: normal; mild incompetence; Tricuspid valve: normal; no significant incompetence: Intra-cardiac hemodynamics: pulmonary systolic pressures: 37mmHgl; central venous pressures: normal No pericardial effusion
[2017-04-06] MEDS: (Novolin R) Insulin Human Regular 100 units/ml vial SC SCH ×7 (08:45→21:41)
[2017-04-06 08:53] LABS: ALBUMIN 2.8 g/dL (3.5-5.0)
[2017-04-06 08:56] LABS: ALB/GLOB RATIO 0.9 (1.0-2.1)
[2017-04-06 08:57] LABS: CALCIUM 7.6 mg/dl (8.6-10.4); MAGNESIUM 2.3 mg/dL (1.6-2.3)
--- NOTE | 2017-04-06 10:02 | CP.PCM.PN ---
Subjective - Date & Time of Evaluation Date of Evaluation: 04/06/17 Time of Evaluation: 09:57 - Subjective Subjective: PGY2 Cardio progress note for Dr. Gamez Pt seen/examined at bedside. She is Amber speaking only and environmental educator was utilized to communicate with her. She denies any acute complaints and states that she is feeling well today. She denies F/C/CP/SOB/N/V. As per nursing staff no acute events overnight. Objective - Vital Signs/Intake and Output Vital Signs (last 24 hours): Temp Pulse Resp BP Pulse Ox 97.5 F L 60 20 147/76 95 04/06/17 08:02 04/06/17 08:02 04/06/17 08:02 04/06/17 08:02 04/06/17 08:02 - Medications Medications: Current Medications Aspirin (Ecotrin) 81 mg PO DAILY [facility] Last Admin: 04/05/17 10:23 Dose: 81 mg Carvedilol (Coreg) 6.25 mg PO BID [facility] Last Admin: 04/05/17 17:34 Dose: 6.25 mg Clopidogrel Bisulfate (Plavix) 75 mg PO DAILY [facility] Last Admin: 04/05/17 10:21 Dose: 75 mg Famotidine (Pepcid) 20 mg PO DAILY [facility] Ferric Sodium Gluconate Complex (Ferrlecit) 125 mg IVPB DAILY [facility] Stop: 04/13/17 10:01 Last Admin: 04/05/17 10:19 Dose: 125 mg Furosemide (Lasix) 40 mg PO DAILY [facility] Last Admin: 04/05/17 10:21 Dose: 40 mg Gabapentin (Neurontin) 100 mg PO BID [facility] Last Admin: 04/05/17 17:34 Dose: 100 mg Heparin Sodium (Porcine) (Heparin) 5,000 units SC Q12 [facility] Last Admin: 04/05/17 21:36 Dose: 5,000 units Hydralazine HCl (Apresoline) 25 mg PO TID [facility] Last Admin: 04/05/17 17:34 Dose: 25 mg Insulin Detemir (Levemir) 52 unit SC HS [facility] Last Admin: 04/05/17 21:37 Dose: 52 unit Insulin Human Regular (Novolin R) 0 unit SC ACHS [facility] PRN Reason: Protocol Last Admin: 04/06/17 08:45 Dose: Not Given Insulin Human Regular (Novolin R) 12 unit SC AC [facility] Last Admin: 04/06/17 08:51 Dose: Not Given Isosorbide Mononitrate (Imdur) 30 mg PO DAILY [facility] Last Admin: 04/05/17 10:22 Dose: 30 mg Rosuvastatin Calcium (Crestor) 5 mg PO HS [facility] Last Admin: 04/05/17 21:36 Dose: 5 mg - Labs Labs: 04/05/17 07:24 04/06/17 08:23 PT 10.6 SECONDS (9.7-12.2) 04/03/17 11:39 INR 0.9 04/03/17 11:39 APTT 32 SECONDS (21-34) 04/03/17 11:39 - Constitutional Appears: No Acute Distress - Head Exam Head Exam: ATRAUMATIC - Eye Exam Eye Exam: EOMI, Normal appearance - ENT Exam ENT Exam: Mucous Membranes Moist - Respiratory Exam Respiratory Exam: Clear to Ausculation Bilateral, NORMAL BREATHING PATTERN. absent: Chest Wall Tenderness - Cardiovascular Exam Cardiovascular Exam: REGULAR RHYTHM, +S1, +S2, Murmur - GI/Abdominal Exam GI & Abdominal Exam: Soft. absent: Tenderness - Extremities Exam Extremities Exam: Pedal Edema. absent: Calf Tenderness Additional comments: +1 pedal edema - Neurological Exam Neurological Exam: Alert, Awake, Oriented x3 Assessment and Plan - Assessment and Plan (Free Text) Assessment: 66F with PMHx of CAD, CHF, HTN, HLD, and DM who presents with acute CHF exacerbation, clinically improving Plan: CHF Exacerbation BNP elevated upon admission at 4210 Echo: EF of 43% with elevated diastolic filling pressure. Previous echo done in March 2016 showed EF 51%. Carvedilol 6.25mg PO BID Lasix 40mg PO daily Imdur 30mg PO daily Metolazone discontinued Aspirin 81 mg Continue Crestor Cardiac diet Pt is clinically improving and appears to be doing/feeling much better today. Case discussed with Dr. Gamez
[2017-04-06] MEDS: Ferric Sodium Gluconat Complex 62.5 mg/5 ml Vial IVPB SCH (10:13)
[2017-04-06 11:31] LABS: BASO # 0.1 K/uL (0.0-0.2); BASO % 0.7 % (0.0-2.0); EOS # 0.4 K/uL (0.0-0.7); EOS % 3.6 % (0.0-4.0); HEMOGLOBIN 11.7 g/dL (11.0-16.0); LYMPH % 18.2 % (20.0-40.0); MEAN CELL VOLUME 81.4 fL (81.0-99.0); MEAN CORPUSCULAR HEMOGLOBIN 26.2 pg (27.0-31.0); MEAN CORPUSCULAR HGB CONC 32.2 g/dL (33.0-37.0); MEAN PLATELET VOLUME 10.2 fL (7.2-11.7); MONO # 0.7 K/uL (0.0-0.8); NEUT # 7.8 K/uL (1.8-7.0); NEUT % 71.5 % (50.0-75.0); NRBC % 0.1 % (0.0-2.0); RBC 4.46 Mil/uL (3.80-5.20); RED CELL DISTRIBUTION WIDTH 15.3 % (11.5-14.5); WHITE BLOOD COUNT 10.9 K/uL (4.8-10.8)
--- NOTE | 2017-04-06 13:40 | CP.PCM.PN ---
<NandoflorenceukUnique Julián - Last Filed: 04/06/17 16:19> Subjective - Date & Time of Evaluation Date of Evaluation: 04/06/17 Time of Evaluation: 07:00 - Subjective Subjective: PGY1- Medicine Note- Dr. Jo's Service Patient seen and visited at bedside stating she is fine as per machine engineer and complains of poor hearing and vision. Patient sates she has poor vision that began one month ago. Admits to bilateral cataracts and states that it is difficult to see, has cloudy vision, is able to see definitions of people without detail. Patient does not leave her hospital room or home due to difficulty seeing. Patient complains of poor hearing that began 1-2 months ago that is worse in her right ear. Patient states she constantly asks people to repeat themselves about three times before she understands. Patient no longer has headaches and dizziness and feels that the ferrlecit administered helped with this. Denies chest pain, shortness of breath, headache, dizziness, tinnitus, fever, chills, abdominal pain, nausea, vomiting, diarrhea, constipation, dysuria, numbness in extremities. Denies any other complaints. Objective - Vital Signs/Intake and Output Vital Signs (last 24 hours): Temp Pulse Resp BP Pulse Ox 97.5 F L 60 20 159/76 H 95 04/06/17 08:02 04/06/17 08:02 04/06/17 08:02 04/06/17 10:19 04/06/17 08:02 - Medications Medications: Current Medications Aspirin (Ecotrin) 81 mg PO DAILY [facility] Last Admin: 04/06/17 10:14 Dose: 81 mg Carvedilol (Coreg) 6.25 mg PO BID [facility] Last Admin: 04/06/17 10:14 Dose: 6.25 mg Clopidogrel Bisulfate (Plavix) 75 mg PO DAILY [facility] Last Admin: 04/06/17 10:14 Dose: 75 mg Famotidine (Pepcid) 20 mg PO DAILY [facility] Last Admin: 04/06/17 10:14 Dose: 20 mg Ferric Sodium Gluconate Complex (Ferrlecit) 125 mg IVPB DAILY [facility] Stop: 04/13/17 10:01 Last Admin: 04/06/17 10:13 Dose: 125 mg Furosemide (Lasix) 40 mg PO DAILY [facility] Last Admin: 07/14/17 10:19 Dose: 40 mg Gabapentin (Neurontin) 100 mg PO BID [facility] Last Admin: 04/06/17 10:14 Dose: 100 mg Heparin Sodium (Porcine) (Heparin) 5,000 units SC Q12 [facility] Last Admin: 04/06/17 10:14 Dose: 5,000 units Hydralazine HCl (Apresoline) 25 mg PO TID [facility] Last Admin: 04/06/17 13:18 Dose: 25 mg Insulin Detemir (Levemir) 52 unit SC HS [facility] Last Admin: 04/05/17 21:37 Dose: 52 unit Insulin Human Regular (Novolin R) 0 unit SC ACHS [facility] PRN Reason: Protocol Last Admin: 04/06/17 13:17 Dose: 4 unit Insulin Human Regular (Novolin R) 12 unit SC AC [facility] Last Admin: 04/06/17 13:17 Dose: 12 unit Isosorbide Mononitrate (Imdur) 30 mg PO DAILY [facility] Last Admin: 04/06/17 10:14 Dose: 30 mg Rosuvastatin Calcium (Crestor) 5 mg PO [facility] Last Admin: 04/05/17 21:36 Dose: 5 mg - Labs Labs: 04/06/17 11:27 04/06/17 08:23 PT 10.6 SECONDS (9.7-12.2) 04/03/17 11:39 INR 0.9 04/03/17 11:39 APTT 32 SECONDS (21-34) 04/03/17 11:39 - Constitutional Appears: Well, Non-toxic, No Acute Distress - Head Exam Head Exam: ATRAUMATIC, NORMAL INSPECTION, NORMOCEPHALIC - ENT Exam ENT Exam: Mucous Membranes Moist, Normal Exam - Neck Exam Neck Exam: Full ROM, Normal Inspection. absent: Lymphadenopathy - Respiratory Exam Respiratory Exam: Clear to Ausculation Bilateral, NORMAL BREATHING PATTERN. absent: Rales, Rhonchi, Wheezes, Respiratory Distress, Stridor - Cardiovascular Exam Cardiovascular Exam: REGULAR RHYTHM, RRR - GI/Abdominal Exam GI & Abdominal Exam: Soft, Normal Bowel Sounds. absent: Distended, Firm, Guarding, Rigid - Extremities Exam Extremities Exam: Full ROM, Normal Inspection, Pedal Edema - Back Exam Back Exam: NORMAL INSPECTION - Neurological Exam Neurological Exam: Alert, Awake, Oriented x3 - Psychiatric Exam Psychiatric exam: Normal Affect, Normal Mood - Skin Skin Exam: Intact, Normal Color, Warm Assessment and Plan - Assessment and Plan (Free Text) Assessment: 1). CHF Exacerbation/Hx CAD BNP is 4210 Echo done in March 2016 showed EF 51% Nuclear Stress Test March 2016 showed and EF of 30% Carvedilol 6.25 mg PO 2x/day Lasix 40 mg IV daily (decreased from BID due to renal insufficiency) Isosorbide Mononitrate 30 mg PO 1x/day Metolazone 2.5 mg PO 1x/day stopped on 04/[address] Archuleta F/U 2ED Echocardiogram F/U further recommendations Cardiology Dr. Gamez F/U Daily Weights * 04/04: 225 * 04/05: 228.7 * 04/06: 229.8 CT Chest: consistent with mild pulmonary edema/ CHF, linear atelectasis and or scarring of left upper lobe. cardiomegaly, no significant pericardial effusion. venous dopplers negative Aspirin 81 mg 2). Acute On Chronic Renal Insufficiency BUN/Cr currently at 68/3.4 and baseline Cr is 2.4 Renal U/S- no hydronephrosis, unremarkable Urine Protein:266 and Cr:25.5 Dr. Archuleta (nephro) recommends : decreased lasix to daily (04/05) -possible nephrotic syndrome * protein excretion rate- 2688.5 * urine random total protein- 266 iv iron added 3). HTN Carvedilol, Isorbide, Lasix, as above. Metolazone stopped on 04/05 Lisinopril held due to renal insufficiency 4). HLD Crestor 5 mg PO QHS 5). DM 2 04/05: Levemir 52 units SC QHS (increased from 33U) and Regualr insulin 12 u AC ( from 6 u AC) Regular ISS Gabapentin 100 mg PO 2x/day (decreased from 300 due to renal insufficiency) 6). R/O iron deficiency anemia MCH and MCHC low, RDW high iron: 20, TIBC: 253, %saturation: 8, Ferritin 92.8 7). Prophylactic Measure Heparin 5,000 Units SC Q12H Protonix 40 mg PO 1x/day Carb Consistent Diet Fluid Restrict 1200 per day <Hermelindo Jo - Last Filed: 04/06/17 19:17> Objective - Vital Signs/Intake and Output Vital Signs (last 24 hours): Temp Pulse Resp BP Pulse Ox 97.7 F 55 L 20 133/68 95 04/06/17 16:00 04/06/17 17:52 04/06/17 16:00 04/06/17 17:52 04/06/17 16:00 Intake and Output: 04/06/17 04/07/17 18:59 06:59 Intake Total 480 Balance 480 - Medications Medications: Current Medications Aspirin (Ecotrin) 81 mg PO DAILY [facility] Last Admin: 04/06/17 10:14 Dose: 81 mg Carvedilol (Coreg) 6.25 mg PO BID [facility] Last Admin: 04/06/17 17:51 Dose: 6.25 mg Clopidogrel Bisulfate (Plavix) 75 mg PO DAILY [facility] Last Admin: 04/06/17 10:14 Dose: 75 mg Famotidine (Pepcid) 20 mg PO DAILY [facility] Last Admin: 04/06/17 10:14 Dose: 20 mg Ferric Sodium Gluconate Complex (Ferrlecit) 125 mg IVPB DAILY [facility] Stop: 04/13/17 10:01 Last Admin: 04/06/17 10:13 Dose: 125 mg Gabapentin (Neurontin) 100 mg PO BID [facility] Last Admin: 04/06/17 17:51 Dose: 100 mg Heparin Sodium (Porcine) (Heparin) 5,000 units SC Q12 [facility] Last Admin: 04/06/17 10:14 Dose: 5,000 units Hydralazine HCl (Apresoline) 25 mg PO TID [facility] Last Admin: 04/06/17 17:51 Dose: 25 mg Sodium Chloride (Sodium Chloride 0.9%) 1,000 mls @ 42 mls/hr IV .[id number] [facility] Stop: 04/07/17 12:00 Last Admin: 04/06/17 15:38 Dose: 42 mls/hr Insulin Detemir (Levemir) 52 unit SC HS [facility] Last Admin: 04/05/17 21:37 Dose: 52 unit Insulin Human Regular (Novolin R) 0 unit SC ACHS [facility] PRN Reason: Protocol Last Admin: 04/06/17 16:43 Dose: 3 unit Insulin Human Regular (Novolin R) 12 unit SC AC [facility] Last Admin: 04/06/17 16:43 Dose: 12 unit Isosorbide Mononitrate (Imdur) 30 mg PO DAILY [facility] Last Admin: 04/06/17 10:14 Dose: 30 mg Rosuvastatin Calcium (Crestor) 5 mg PO HS [facility] Last Admin: 04/05/17 21:36 Dose: 5 mg - Labs Labs: 04/06/17 11:27 04/06/17 08:23 PT 10.6 SECONDS (9.7-12.2) 04/03/17 11:39 INR 0.9 04/03/17 11:39 APTT 32 SECONDS (21-34) 04/03/17 11:39 Attending/Attestation - Attestation I have personally seen and examined this patient.: Yes I have fully participated in the care of the patient.: Yes I have reviewed all pertinent clinical information, including history, physical exam and plan: Yes Notes (Text): 04/06/17 19:15 Patient was seen and examined at 6:15 PM Exam, Assessment and Plan were thoroughly gone over with the Resident. NS at 40 ml x 1 liter has been ordered by Nephrology for the worsening renal function. Will follow up labs in the morning. Stressed fluid restriction to patient and her daughter. Hermelindo Jo D.O.
--- NOTE | 2017-04-06 14:35 | CP.PCM.PN ---
Subjective - Date & Time of Evaluation Date of Evaluation: 04/06/17 Time of Evaluation: 14:33 - Subjective Subjective: Only c/o back pain Not dyspneic Creat increased to 4 UO not resorded Objective - Vital Signs/Intake and Output Vital Signs (last 24 hours): Temp Pulse Resp BP Pulse Ox 97.5 F L 60 20 159/76 H 95 04/06/17 08:02 04/06/17 08:02 04/06/17 08:02 04/06/17 10:19 04/06/17 08:02 Intake and Output: 04/06/17 04/06/17 06:59 18:59 Intake Total 480 Balance 480 - Medications Medications: Current Medications Aspirin (Ecotrin) 81 mg PO DAILY [facility] Last Admin: 04/06/17 10:14 Dose: 81 mg Carvedilol (Coreg) 6.25 mg PO BID [facility] Last Admin: 04/06/17 10:14 Dose: 6.25 mg Clopidogrel Bisulfate (Plavix) 75 mg PO DAILY [facility] Last Admin: 04/06/17 10:14 Dose: 75 mg Famotidine (Pepcid) 20 mg PO DAILY [facility] Last Admin: 04/06/17 10:14 Dose: 20 mg Ferric Sodium Gluconate Complex (Ferrlecit) 125 mg IVPB DAILY [facility] Stop: 04/13/17 10:01 Last Admin: 04/06/17 10:13 Dose: 125 mg Furosemide (Lasix) 40 mg PO DAILY [facility] Last Admin: 04/06/17 10:19 Dose: 40 mg Gabapentin (Neurontin) 100 mg PO BID [facility] Last Admin: 04/06/17 10:14 Dose: 100 mg Heparin Sodium (Porcine) (Heparin) 5,000 units SC Q12 [facility] Last Admin: 04/06/17 10:14 Dose: 5,000 units Hydralazine HCl (Apresoline) 25 mg PO TID [facility] Last Admin: 04/06/17 13:18 Dose: 25 mg Insulin Detemir (Levemir) 52 unit SC HS [facility] Last Admin: 04/05/17 21:37 Dose: 52 unit Insulin Human Regular (Novolin R) 0 unit SC ACHS [facility] PRN Reason: Protocol Last Admin: 04/06/17 13:17 Dose: 4 unit Insulin Human Regular (Novolin R) 12 unit SC AC [facility] Last Admin: 04/06/17 13:17 Dose: 12 unit Isosorbide Mononitrate (Imdur) 30 mg PO DAILY [facility] Last Admin: 04/06/17 10:14 Dose: 30 mg Rosuvastatin Calcium (Crestor) 5 mg PO HS [facility] Last Admin: 04/05/17 21:36 Dose: 5 mg - Labs Labs: 04/06/17 11:27 04/06/17 08:23 PT 10.6 SECONDS (9.7-12.2) 04/03/17 11:39 INR 0.9 04/03/17 11:39 APTT 32 SECONDS (21-34) 04/03/17 11:39 - Constitutional Appears: No Acute Distress, Chronically Ill - Head Exam Head Exam: ATRAUMATIC, NORMAL INSPECTION - Eye Exam Eye Exam: EOMI, Normal appearance - Neck Exam Neck Exam: Normal Inspection. absent: Tenderness - Cardiovascular Exam Cardiovascular Exam: REGULAR RHYTHM, +S1 - GI/Abdominal Exam GI & Abdominal Exam: Soft. absent: Tenderness - Extremities Exam Extremities Exam: Normal Inspection. absent: Tenderness - Neurological Exam Neurological Exam: Alert, CN II-XII Intact - Skin Skin Exam: Dry, Warm Assessment and Plan (1) Proteinuria Status: Acute (2) Type 2 diabetes mellitus with diabetic nephropathy Status: Acute (3) Acute on chronic diastolic CHF (congestive heart failure) Status: Acute (4) CKD (chronic kidney disease) stage 4, GFR 15-29 ml/min Status: Acute (5) Cardiomyopathy Status: Acute (6) Cardiorenal syndrome Status: Acute - Assessment and Plan (Free Text) Plan: Hold diuretics IV fluids follow chemistries as pt likely over diuresed
[2017-04-06] MEDS ORDERED: Sodium Chloride 0.9% 1,000 ML IV SCH (14:45)
[2017-04-06] MEDS: Insulin Detemir 100 units/ml Vial (Levemir) SC SCH (21:48)
--- NOTE | 2017-04-07 06:32 | CP.PCM.PN ---
Subjective - Date & Time of Evaluation Date of Evaluation: 04/07/17 Time of Evaluation: 06:32 Objective - Vital Signs/Intake and Output Vital Signs (last 24 hours): Temp Pulse Resp BP Pulse Ox 97.4 F L 56 L 18 112/54 L 95 04/06/17 23:30 04/07/17 04:07 04/06/17 23:30 04/06/17 23:30 04/06/17 23:30 Intake and Output: 04/06/17 04/07/17 18:59 06:59 Intake Total 720 350 Output Total 150 Balance 720 200 - Medications Medications: Current Medications Aspirin (Ecotrin) 81 mg PO DAILY [facility] Last Admin: 04/06/17 10:14 Dose: 81 mg Carvedilol (Coreg) 6.25 mg PO BID [facility] Last Admin: 04/06/17 17:51 Dose: 6.25 mg Clopidogrel Bisulfate (Plavix) 75 mg PO DAILY [facility] Last Admin: 04/06/17 10:14 Dose: 75 mg Famotidine (Pepcid) 20 mg PO DAILY [facility] Last Admin: 04/06/17 10:14 Dose: 20 mg Ferric Sodium Gluconate Complex (Ferrlecit) 125 mg IVPB DAILY [facility] Stop: 04/13/17 10:01 Last Admin: 04/06/17 10:13 Dose: 125 mg Gabapentin (Neurontin) 100 mg PO BID [facility] Last Admin: 04/06/17 17:51 Dose: 100 mg Heparin Sodium (Porcine) (Heparin) 5,000 units SC Q12 [facility] Last Admin: 04/06/17 21:49 Dose: 5,000 units Hydralazine HCl (Apresoline) 25 mg PO TID [facility] Last Admin: 04/06/17 17:51 Dose: 25 mg Sodium Chloride (Sodium Chloride 0.9%) 1,000 mls @ 42 mls/hr IV .[id number] [facility] Stop: 04/07/17 12:00 Last Admin: 04/06/17 15:38 Dose: 42 mls/hr Insulin Detemir (Levemir) 52 unit SC HS [facility] Last Admin: 04/06/17 21:48 Dose: 52 unit Insulin Human Regular (Novolin R) 0 unit SC ACHS [facility] PRN Reason: Protocol Last Admin: 04/06/17 21:41 Dose: Not Given Insulin Human Regular (Novolin R) 12 unit SC AC [facility] Last Admin: 04/06/17 16:43 Dose: 12 unit Isosorbide Mononitrate (Imdur) 30 mg PO DAILY [facility] Last Admin: 04/06/17 10:14 Dose: 30 mg Rosuvastatin Calcium (Crestor) 5 mg PO HS [facility] Last Admin: 04/06/17 21:49 Dose: 5 mg - Labs Labs: 04/06/17 11:27 04/06/17 08:23 PT 10.6 SECONDS (9.7-12.2) 04/03/17 11:39 INR 0.9 04/03/17 11:39 APTT 32 SECONDS (21-34) 04/03/17 11:39
[2017-04-07 07:38] LABS: CALCIUM 7.8 mg/dl (8.6-10.4)
--- NOTE | 2017-04-07 07:38 | CP.PCM.PN ---
Subjective - Date & Time of Evaluation Date of Evaluation: 04/07/17 Time of Evaluation: 07:15 - Subjective Subjective: Patient was seen and examined at bedside. Objective - Vital Signs/Intake and Output Vital Signs (last 24 hours): Temp Pulse Resp BP Pulse Ox 97.4 F L 56 L 18 112/54 L 95 04/06/17 23:30 04/07/17 04:07 04/06/17 23:30 04/06/17 23:30 04/06/17 23:30 Intake and Output: 04/07/17 04/07/17 06:59 18:59 Intake Total 686 Output Total 150 Balance 536 - Medications Medications: Current Medications Aspirin (Ecotrin) 81 mg PO DAILY [facility] Last Admin: 04/06/17 10:14 Dose: 81 mg Carvedilol (Coreg) 6.25 mg PO BID [facility] Last Admin: 04/06/17 17:51 Dose: 6.25 mg Clopidogrel Bisulfate (Plavix) 75 mg PO DAILY [facility] Last Admin: 04/06/17 10:14 Dose: 75 mg Famotidine (Pepcid) 20 mg PO DAILY [facility] Last Admin: 04/06/17 10:14 Dose: 20 mg Ferric Sodium Gluconate Complex (Ferrlecit) 125 mg IVPB DAILY [facility] Stop: 04/13/17 10:01 Last Admin: 04/06/17 10:13 Dose: 125 mg Gabapentin (Neurontin) 100 mg PO BID [facility] Last Admin: 04/06/17 17:51 Dose: 100 mg Heparin Sodium (Porcine) (Heparin) 5,000 units SC Q12 [facility] Last Admin: 04/06/17 21:49 Dose: 5,000 units Hydralazine HCl (Apresoline) 25 mg PO TID [facility] Last Admin: 04/06/17 17:51 Dose: 25 mg Sodium Chloride (Sodium Chloride 0.9%) 1,000 mls @ 42 mls/hr IV .[id number] [facility] Stop: 04/07/17 12:00 Last Admin: 04/06/17 15:38 Dose: 42 mls/hr Insulin Detemir (Levemir) 52 unit SC HS [facility] Last Admin: 04/06/17 21:48 Dose: 52 unit Insulin Human Regular (Novolin R) 0 unit SC ACHS [facility] PRN Reason: Protocol Last Admin: 07/14/17 21:41 Dose: Not Given Insulin Human Regular (Novolin R) 12 unit SC AC [facility] Last Admin: 04/06/17 16:43 Dose: 12 unit Isosorbide Mononitrate (Imdur) 30 mg PO DAILY [facility] Last Admin: 04/06/17 10:14 Dose: 30 mg Rosuvastatin Calcium (Crestor) 5 mg PO HS [facility] Last Admin: 04/06/17 21:49 Dose: 5 mg - Labs Labs: 04/06/17 11:27 04/06/17 08:23 PT 10.6 SECONDS (9.7-12.2) 04/03/17 11:39 INR 0.9 04/03/17 11:39 APTT 32 SECONDS (21-34) 04/03/17 11:39 Assessment and Plan - Assessment and Plan (Free Text) Assessment: 1). CHF Exacerbation/Hx CAD BNP is 4210 Echo done in March 2016 showed EF 51% Nuclear Stress Test March 2016 showed and EF of 30% Carvedilol 6.25 mg PO 2x/day Lasix 40 mg IV daily (decreased from BID due to renal insufficiency) Isosorbide Mononitrate 30 mg PO 1x/day Metolazone 2.5 mg PO 1x/day stopped on 04/[address] Archuleta F/U 2ED Echocardiogram F/U further recommendations Cardiology Dr. Gamez F/U Daily Weights * 04/04: 225 * 04/05: 228.7 * 04/06: 229.8 CT Chest: consistent with mild pulmonary edema/ CHF, linear atelectasis and or scarring of left upper lobe. cardiomegaly, no significant pericardial effusion. venous dopplers negative Aspirin 81 mg 2). Acute On Chronic Renal Insufficiency BUN/Cr currently at 68/3.4 and baseline Cr is 2.4 Renal U/S- no hydronephrosis, unremarkable Urine Protein:266 and Cr:25.5 Dr. Archuleta (nephro) recommends : decreased lasix to daily (04/05) -possible nephrotic syndrome * protein excretion rate- 2688.5 * urine random total protein- 266 iv iron added 3). HTN Carvedilol, Isorbide, Lasix, as above. Metolazone stopped on 04/05 Lisinopril held due to renal insufficiency 4). HLD Crestor 5 mg PO QHS 5). DM 2 04/05: Levemir 52 units SC QHS (increased from 33U) and Regualr insulin 12 u AC ( from 6 u AC) Regular ISS Gabapentin 100 mg PO 2x/day (decreased from 300 due to renal insufficiency) 6). R/O iron deficiency anemia MCH and MCHC low, RDW high iron: 20, TIBC: 253, %saturation: 8, Ferritin 92.8 7). Prophylactic Measure Heparin 5,000 Units SC Q12H Protonix 40 mg PO 1x/day Carb Consistent Diet Fluid Restrict 1200 per day
[2017-04-07] MEDS: (Novolin R) Insulin Human Regular 100 units/ml vial SC SCH ×7 (09:19→21:30)
[2017-04-07] MEDS: Ferric Sodium Gluconat Complex 62.5 mg/5 ml Vial IVPB SCH (10:54)
--- NOTE | 2017-04-07 12:07 | CP.PCM.PN ---
Subjective - Date & Time of Evaluation Date of Evaluation: 04/07/17 Time of Evaluation: 10:45 - Subjective Subjective: on phone no distress breathing comfortable off diuretics for now noted renal function Objective - Vital Signs/Intake and Output Vital Signs (last 24 hours): Temp Pulse Resp BP Pulse Ox 97.7 F 54 L 20 115/73 97 04/07/17 09:29 04/07/17 09:29 04/07/17 09:29 04/07/17 09:29 04/07/17 09:29 Intake and Output: 04/07/17 04/07/17 06:59 18:59 Intake Total 686 Output Total 150 Balance 536 - Medications Medications: Current Medications Aspirin (Ecotrin) 81 mg PO DAILY [facility] Last Admin: 04/06/17 10:14 Dose: 81 mg Carvedilol (Coreg) 6.25 mg PO BID [facility] Last Admin: 04/07/17 10:55 Dose: 6.25 mg Clopidogrel Bisulfate (Plavix) 75 mg PO DAILY [facility] Last Admin: 04/07/17 10:54 Dose: 75 mg Famotidine (Pepcid) 20 mg PO DAILY [facility] Last Admin: 04/07/17 10:54 Dose: 20 mg Ferric Sodium Gluconate Complex (Ferrlecit) 125 mg IVPB DAILY [facility] Stop: 04/13/17 10:01 Last Admin: 04/07/17 10:54 Dose: 125 mg Gabapentin (Neurontin) 100 mg PO BID [facility] Last Admin: 04/07/17 10:54 Dose: 100 mg Heparin Sodium (Porcine) (Heparin) 5,000 units SC Q12 [facility] Last Admin: 04/07/17 10:54 Dose: 5,000 units Hydralazine HCl (Apresoline) 25 mg PO TID [facility] Last Admin: 04/07/17 10:55 Dose: 25 mg Insulin Detemir (Levemir) 52 unit SC HS [facility] Last Admin: 04/06/17 21:48 Dose: 52 unit Insulin Human Regular (Novolin R) 0 unit SC ACHS [facility] PRN Reason: Protocol Last Admin: 04/07/17 09:19 Dose: Not Given Insulin Human Regular (Novolin R) 12 unit SC AC [facility] Last Admin: 04/07/17 10:55 Dose: 12 unit Isosorbide Mononitrate (Imdur) 30 mg PO DAILY [facility] Last Admin: 04/07/17 10:54 Dose: 30 mg Rosuvastatin Calcium (Crestor) 5 mg PO HS [facility] Last Admin: 04/06/17 21:49 Dose: 5 mg - Labs Labs: 04/06/17 11:27 04/07/17 07:15 PT 10.6 SECONDS (9.7-12.2) 04/03/17 11:39 INR 0.9 04/03/17 11:39 APTT 32 SECONDS (21-34) 04/03/17 11:39 - Constitutional Appears: Non-toxic - Head Exam Head Exam: ATRAUMATIC - Eye Exam Eye Exam: EOMI - ENT Exam ENT Exam: Mucous Membranes Moist - Neck Exam Neck Exam: Full ROM - Respiratory Exam Respiratory Exam: Decreased Breath Sounds - Cardiovascular Exam Cardiovascular Exam: REGULAR RHYTHM - GI/Abdominal Exam GI & Abdominal Exam: Distended, Soft. absent: Tenderness - Extremities Exam Extremities Exam: Pedal Edema Assessment and Plan - Assessment and Plan (Free Text) Assessment: ckd 4 cardiorenal exacerbation diuretics on hold/reduced for now pt asx will continue to follow
--- NOTE | 2017-04-07 15:59 | CP.PCM.PN ---
Subjective - Date & Time of Evaluation Date of Evaluation: 04/07/17 Time of Evaluation: 15:40 - Subjective Subjective: Hospitalist Progress Note (Patient was seen and examined at 3:40 PM 563 A with grandson present who translated Kiswahili) 66 year old female (PMHx CHF, CAD Chronic Renal Insufficiency, HTN, HLD, DM 2 on Insulin) was admitted on morning 04/03/17 for 1 month of worsening fatigue, SOB, and difficulty ambulating. She was found to be in CHF Exacerbation. Currrently upon FULL ROS there is NO chest pain, NO palpitations, SOB is no longer present, (+) Cough dry that comes and goes, NO wheezing, NO abdominal pain, NO n/v/d/c, NO burning/pain with urination, NO lightheadedness/dizziness, NO headache, NO new changes in vision, NO new changes in hearing, NO paresthesias, NO diaphoresis, (+) Edema of the legs that has worsened over the past 1 month which has also improved as it is no longer present Exam: HEENT: NCA, EOMI, PERRLA, NO lymphadenopathy, NO thyromegaly, NO pharyngeal erythema/exudate Cardio: NS1 and NS2, NO M/R/G, NO JVD, NO Hepatojugular Reflux Resp: Bilateral Mid to Lower Lung Field Inspiratory Rhonchi are now confined to the Bilateral Basilar area GI: BSx4 are decreased, NT, Central Obesity, Could NOT adequately palpate Liver and Spleen, NO guarding rebound tenderness Ext: Pulses are strong and equal, Capillary Refill is 2 seconds, 1+ Pitting Edema from the feet to the just below the knees is no longer present Neuro: CN II through XII are grossly intact Assessment and Plan: 1). CHF Exacerbation/Hx CAD BNP is 4210 Echo done in March 2016 showed EF 51% and once done on this admission shows EF to be 43% Nuclear Stress Test March 2016 showed and EF of 30% Carvedilol 6.25 mg PO 2x/day Lasix 40 mg IV Q12H and Metolazone 2.5 mg PO 1x/day was discontinued due to the worsening Acute on Chronic Renal Insufficiency Isosorbide Mononitrate 30 mg PO 1x/day Cardiology Dr. Gamez Weight today 04/07/[address] Chest showed mild pulmonary congestion 2). Acute On Chronic Renal Insufficiency (Stage IV) BUN/Cr currently at 77/4.4 being given NS gently on 04/06/17 Urine Protein 24 hours revealed 2,688.5 (close to Nephrotic Syndrome) Renal U/S was unremarkable Will need clearance from Nephrology for discharge as patient is stable from cardiology/CHF standpoint. Nephrology's help is greatly appreciated. 3). HTN Carvedilol, Isorbide 4). HLD Crestor 5 mg PO QHS 5). DM 2 on Insulin Levemir was inscreased to 62 units (from 52 units) and Regular Insulin increased to 15 units AC (from 12 units) as she required a total of 20 units of regular insulin on RISS from 8 AM 04/06/17 to 8 AM 04/07/17 Regular ISS Gabapentin 300 mg PO 2x/day 6). Prophylactic Measure Heparin 5,000 Units SC Q12H Protonix 40 mg PO 1x/day Carb Consistent Diet Fluid Restrict 1200 per day Daily Weight Objective - Vital Signs/Intake and Output Vital Signs (last 24 hours): Temp Pulse Resp BP Pulse Ox 97.7 F 54 L 20 133/73 97 04/07/17 15:09 04/07/17 15:09 04/07/17 15:09 04/07/17 15:09 04/07/17 15:09 Intake and Output: 04/07/17 04/07/17 06:59 18:59 Intake Total 686 Output Total 150 Balance 536 - Medications Medications: Current Medications Aspirin (Ecotrin) 81 mg PO DAILY [facility] Last Admin: 04/07/17 12:30 Dose: 81 mg Carvedilol (Coreg) 6.25 mg PO BID [facility] Last Admin: 04/07/17 10:55 Dose: 6.25 mg Clopidogrel Bisulfate (Plavix) 75 mg PO DAILY [facility] Last Admin: 04/07/17 10:54 Dose: 75 mg Famotidine (Pepcid) 20 mg PO DAILY [facility] Last Admin: 04/07/17 10:54 Dose: 20 mg Ferric Sodium Gluconate Complex (Ferrlecit) 125 mg IVPB DAILY [facility] Stop: 04/13/17 10:01 Last Admin: 04/07/17 10:54 Dose: 125 mg Gabapentin (Neurontin) 100 mg PO BID [facility] Last Admin: 04/07/17 10:54 Dose: 100 mg Heparin Sodium (Porcine) (Heparin) 5,000 units SC Q12 [facility] Last Admin: 04/07/17 10:54 Dose: 5,000 units Hydralazine HCl (Apresoline) 25 mg PO TID [facility] Last Admin: 04/07/17 14:26 Dose: 25 mg Insulin Detemir (Levemir) 62 unit SC HS [facility] Insulin Human Regular (Novolin R) 0 unit SC ACHS [facility] PRN Reason: Protocol Last Admin: 04/07/17 14:26 Dose: 3 unit Insulin Human Regular (Novolin R) 15 unit SC AC [facility] Isosorbide Mononitrate (Imdur) 30 mg PO DAILY [facility] Last Admin: 04/07/17 10:54 Dose: 30 mg Rosuvastatin Calcium (Crestor) 5 mg PO HS [facility] Last Admin: 04/06/17 21:49 Dose: 5 mg - Labs Labs: 04/06/17 11:27 04/07/17 07:15 PT 10.6 SECONDS (9.7-12.2) 04/03/17 11:39 INR 0.9 04/03/17 11:39 APTT 32 SECONDS (21-34) 04/03/17 11:39
[2017-04-07] MEDS ORDERED: Aluminum Hydroxide/Magnesium Hydroxide Susp (30 mL) PO ONE (21:58)
[2017-04-07] MEDS ORDERED: Insulin Detemir 100 units/ml Vial (Levemir) SC SCH (22:00)
--- NOTE | 2017-04-08 07:31 | CP.PCM.PN ---
<Ryan Cai R - Last Filed: 04/08/17 07:29> Subjective - Date & Time of Evaluation Date of Evaluation: 04/08/17 Time of Evaluation: :15 - Subjective Subjective: Patient was seen and examined at bedside. Objective - Vital Signs/Intake and Output Vital Signs (last 24 hours): Temp Pulse Resp BP Pulse Ox 97.6 F 55 L 20 131/70 96 04/07/17 23:20 04/08/17 00:00 04/07/17 23:20 04/07/17 23:20 04/07/17 23:20 - Medications Medications: Current Medications Aspirin (Ecotrin) 81 mg PO DAILY [facility] Last Admin: 04/07/17 12:30 Dose: 81 mg Carvedilol (Coreg) 6.25 mg PO BID [facility] Last Admin: 04/07/17 18:07 Dose: 6.25 mg Clopidogrel Bisulfate (Plavix) 75 mg PO DAILY [facility] Last Admin: 04/07/17 10:54 Dose: 75 mg Famotidine (Pepcid) 20 mg PO DAILY [facility] Last Admin: 04/07/17 10:54 Dose: 20 mg Ferric Sodium Gluconate Complex (Ferrlecit) 125 mg IVPB DAILY [facility] Stop: 04/13/17 10:01 Last Admin: 04/07/17 10:54 Dose: 125 mg Gabapentin (Neurontin) 100 mg PO BID [facility] Last Admin: 04/07/17 18:07 Dose: 100 mg Heparin Sodium (Porcine) (Heparin) 5,000 units SC Q12 [facility] Last Admin: 04/07/17 22:04 Dose: 5,000 units Hydralazine HCl (Apresoline) 25 mg PO TID [facility] Last Admin: 04/07/17 18:07 Dose: 25 mg Insulin Detemir (Levemir) 62 unit SC HS [facility] Last Admin: 04/07/17 22:03 Dose: 62 unit Insulin Human Regular (Novolin R) 0 unit SC ACHS [facility] PRN Reason: Protocol Last Admin: 04/07/17 21:30 Dose: Not Given Insulin Human Regular (Novolin R) 15 unit SC AC [facility] Last Admin: 04/07/17 18:06 Dose: 15 unit Isosorbide Mononitrate (Imdur) 30 mg PO DAILY [facility] Last Admin: 04/07/17 10:54 Dose: 30 mg Rosuvastatin Calcium (Crestor) 5 mg PO HS [facility] Last Admin: 04/07/17 22:04 Dose: 5 mg - Labs Labs: 04/06/17 11:27 04/07/17 07:15 PT 10.6 SECONDS (9.7-12.2) 04/03/17 11:39 INR 0.9 04/03/17 11:39 APTT 32 SECONDS (21-34) 04/03/17 11:39 - Constitutional Appears: Well, Non-toxic, No Acute Distress - Head Exam Head Exam: ATRAUMATIC, NORMAL INSPECTION, NORMOCEPHALIC - Eye Exam Eye Exam: EOMI, Normal appearance, PERRL - ENT Exam ENT Exam: Mucous Membranes Moist - Neck Exam Neck Exam: Full ROM, Normal Inspection. absent: Lymphadenopathy - Respiratory Exam Respiratory Exam: Clear to Ausculation Bilateral, Rhonchi, NORMAL BREATHING PATTERN Additional comments: Bilateral Mid to Lower Lung Field Inspiratory Rhonchi are now confined to the Bilateral Basilar area - Cardiovascular Exam Cardiovascular Exam: REGULAR RHYTHM, RRR, +S1, +S2 - GI/Abdominal Exam GI & Abdominal Exam: Diminished Bowel Sounds - Rectal Exam Rectal Exam: Deferred - Extremities Exam Extremities Exam: absent: Pedal Edema - Neurological Exam Neurological Exam: Alert, Awake, Oriented x3 - Psychiatric Exam Psychiatric exam: Normal Affect, Normal Mood - Skin Skin Exam: Dry, Intact, Normal Color, Warm Assessment and Plan - Assessment and Plan (Free Text) Assessment: 1). CHF Exacerbation/Hx CAD BNP is 4210 Echo done in March 2016 showed EF 51% and once done on this admission shows EF to be 43% Nuclear Stress Test March 2016 showed and EF of 30% Carvedilol 6.25 mg PO 2x/day Lasix 40 mg IV Q12H and Metolazone 2.5 mg PO 1x/day was discontinued due to the worsening Acute on Chronic Renal Insufficiency Isosorbide Mononitrate 30 mg PO 1x/day Cardiology Dr. Gamez Weight today 04/07/[address] Chest showed mild pulmonary congestion 2). Acute On Chronic Renal Insufficiency (Stage IV) BUN/Cr currently at 77/4.4 being given NS gently on 04/06/17 Urine Protein 24 hours revealed 2,688.5 (close to Nephrotic Syndrome) Renal U/S was unremarkable Will need clearance from Nephrology for discharge as patient is stable from cardiology/CHF standpoint. Nephrology's help is greatly appreciated. 3). HTN Carvedilol, Isorbide 4). HLD Crestor 5 mg PO QHS 5). DM 2 on Insulin Levemir was inscreased to 62 units (from 52 units) and Regular Insulin increased to 15 units AC (from 12 units) as she required a total of 20 units of regular insulin on RISS from 8 AM 04/06/17 to 8 AM 04/07/17 Regular ISS Gabapentin 300 mg PO 2x/day 6). Prophylactic Measure Heparin 5,000 Units SC Q12H Protonix 40 mg PO 1x/day Carb Consistent Diet Fluid Restrict 1200 per day Daily Weight <Hermelindo Jo - Last Filed: 04/08/17 19:39> Objective - Vital Signs/Intake and Output Vital Signs (last 24 hours): Temp Pulse Resp BP Pulse Ox 97.9 F 57 L 20 154/79 H 95 04/08/17 15:53 04/08/17 16:00 04/08/17 15:53 04/08/17 15:53 04/08/17 15:53 Intake and Output: 04/08/17 04/09/17 18:59 06:59 Intake Total 200 Balance 200 - Medications Medications: Current Medications Aspirin (Ecotrin) 81 mg PO DAILY [facility] Last Admin: 04/08/17 09:38 Dose: 81 mg Carvedilol (Coreg) 6.25 mg PO BID [facility] Last Admin: 04/08/17 17:34 Dose: 6.25 mg Clopidogrel Bisulfate (Plavix) 75 mg PO DAILY [facility] Last Admin: 04/08/17 09:38 Dose: 75 mg Famotidine (Pepcid) 20 mg PO DAILY [facility] Last Admin: 04/07/17 10:54 Dose: 20 mg Ferric Sodium Gluconate Complex (Ferrlecit) 125 mg IVPB DAILY [facility] Stop: 04/13/17 10:01 Last Admin: 04/08/17 09:37 Dose: 125 mg Gabapentin (Neurontin) 100 mg PO BID [facility] Last Admin: 04/08/17 17:34 Dose: 100 mg Heparin Sodium (Porcine) (Heparin) 5,000 units SC Q12 [facility] Last Admin: 04/08/17 09:38 Dose: 5,000 units Hydralazine HCl (Apresoline) 25 mg PO TID [facility] Last Admin: 04/08/17 17:33 Dose: 25 mg Insulin Detemir (Levemir) 62 unit SC HS [facility] Last Admin: 04/07/17 22:03 Dose: 62 unit Insulin Human Regular (Novolin R) 0 unit SC ACHS [facility] PRN Reason: Protocol Last Admin: 04/08/17 17:35 Dose: 3 unit Insulin Human Regular (Novolin R) 15 unit SC AC [facility] Last Admin: 04/08/17 17:35 Dose: 15 unit Isosorbide Mononitrate (Imdur) 30 mg PO DAILY [facility] Last Admin: 04/08/17 09:38 Dose: 30 mg Rosuvastatin Calcium (Crestor) 5 mg PO HS [facility] Last Admin: 04/07/17 22:04 Dose: 5 mg - Labs Labs: 04/08/17 08:35 04/08/17 08:35 PT 10.6 SECONDS (9.7-12.2) 04/03/17 11:39 INR 0.9 04/03/17 11:39 APTT 32 SECONDS (21-34) 04/03/17 11:39 Attending/Attestation - Attestation I have personally seen and examined this patient.: Yes I have fully participated in the care of the patient.: Yes I have reviewed all pertinent clinical information, including history, physical exam and plan: Yes Notes (Text): 04/08/17 19:23 Hospitalist Progress Note (Patient was seen and examined at 5:20 PM 563 A with resident who was able to translate Estonian) 66 year old female (PMHx CHF, CAD Chronic Renal Insufficiency, HTN, HLD, DM 2 on Insulin) was admitted on morning 04/03/17 for 1 month of worsening fatigue, SOB, and difficulty ambulating. She was found to be in CHF Exacerbation. She was also found to have Acute on Chronic Renal Insufficiency. Currrently upon FULL ROS there is NO chest pain, NO palpitations, SOB is no longer present, (+) Cough dry that comes and goes, NO wheezing, (+) Abdominal Discomfort in the lower epigastric area that is best described as a "gas pain", NO n/v/d/c, NO burning/pain with urination, NO lightheadedness/dizziness, NO headache, NO new changes in vision, NO new changes in hearing, NO paresthesias, NO diaphoresis, (+) Edema of the legs that has worsened over the past 1 month which has also improved since admission and it is no longer present Exam: HEENT: NCA, EOMI, PERRLA, NO lymphadenopathy, NO thyromegaly, NO pharyngeal erythema/exudate Cardio: NS1 and NS2, NO M/R/G, NO JVD, NO Hepatojugular Reflux Resp: Bilateral Mid to Lower Lung Field Inspiratory Rhonchi are now confined to the Bilateral Basilar area GI: BSx4 are decreased, NT (no tenderness to palpation), Central Obesity, Could NOT adequately palpate Liver and Spleen, NO guarding rebound tenderness Ext: Pulses are strong and equal, Capillary Refill is 2 seconds, 1+ Pitting Edema from the feet to the just below the knees is no longer present Neuro: CN II through XII are grossly intact Assessment and Plan: 1). CHF Exacerbation/Hx CAD BNP is 4210 Echo done in March 2016 showed EF 51% and once done on this admission shows EF to be 43% Nuclear Stress Test March 2016 showed and EF of 30% Carvedilol 6.25 mg PO 2x/day Lasix 40 mg IV Q12H and Metolazone 2.5 mg PO 1x/day was discontinued due to the worsening Acute on Chronic Renal Insufficiency Isosorbide Mononitrate 30 mg PO 1x/day Cardiology Dr. Gamez Weight today 04/07/[address] Chest showed mild pulmonary congestion 2). Acute On Chronic Renal Insufficiency (Stage IV) and likely Nephrotic Syndrome BUN/Cr currently at 80/4.0 and this is worsening S/P 1 liter NS gently on 04/06/17 Urine Protein 24 hours revealed 2,688.5, she has albumin < 3.5 g, she has a history of edema of the bilateral legs, she has a history of Hyperlipidemia, and she has a history of HTN: so has just about the all of the characteristics of Nephrotic Syndrome (although the 24 hour Urine Protein is not quite 3.5 gm, I believe that it is on the way there. Because of this I have ordered Nephrotic Syndrome workup: SELINA, Anti-ds DNA Abs, C3, C4, Serum Protein Electrophoresis, Hepatitis Panel, HIV, RPR, and Cryocrit. So Medicine Team please follow up these studies to help to determine the cause of the likely Nephrotic Syndrome. The only test that I was not able to find in the computer was Antiphospholipase A2 Abs. Please speak with Neprhology Dr. Archuleta to see if this particular test is necessary. To treat the likely Nephrotic Syndrome: control the DM and constantly fine tune the Insulin Regimen, restrict patient to 2 gram Na a day, we can not use SUSANNE I and ARB as patient has CKD Stage IV, protein supplement (Glucerna Shakes 3x/day have been ordered), and Dietary Consult placed for increased protein diet. Renal U/S was unremarkable Will need clearance from Nephrology for discharge as patient is stable from cardiology/CHF standpoint. 3). HTN Carvedilol, Isorbide 4). HLD Crestor 5 mg PO QHS 5). DM 2 on Insulin HgBA1C 11.1 Levemir was inscreased to 62 units (from 52 units) and Regular Insulin increased to 15 units AC (from 12 units) as she required a total of 20 units of regular insulin on RISS from 8 AM 04/06/17 to 8 AM 04/07/17 Regular ISS Gabapentin 300 mg PO 2x/day 6). Prophylactic Measure Heparin 5,000 Units SC Q12H Protonix 40 mg PO 1x/day Carb Consistent Diet Fluid Restrict 1200 per day Daily Weight Medicine Team please also note: Please also follow up with U/S Abdomen (ordered because of the lower epigastric pain as described in review of systems for which we gave 1 dose of Magnesium Oxide 400 mg PO on 04/08/17) which will be done in the morning 04/09/17 after midnight fast. Because of this, tonight's dose of Levemir was held. On 04/09/17 morning please give half the current total dose of Levemir after she gets back from radiology (Levemir 31 Units) and the other half (Levemir 31 Units ) at bedtime 04/09/17.
[2017-04-08] MEDS: (Novolin R) Insulin Human Regular 100 units/ml vial SC SCH ×7 (08:04→21:36)
[2017-04-08 08:46] LABS: BASO # 0.1 K/uL (0.0-0.2); BASO % 0.8 % (0.0-2.0); EOS # 0.5 K/uL (0.0-0.7); EOS % 4.3 % (0.0-4.0); LYMPH # 2.4 K/uL (1.0-4.3); LYMPH % 22.4 % (20.0-40.0); MEAN CELL VOLUME 82.3 fL (81.0-99.0); MEAN CORPUSCULAR HEMOGLOBIN 26.5 pg (27.0-31.0); MEAN CORPUSCULAR HGB CONC 32.2 g/dL (33.0-37.0); MEAN PLATELET VOLUME 10.2 fL (7.2-11.7); MONO # 0.9 K/uL (0.0-0.8); MONO % 8.1 % (0.0-10.0); NEUT # 6.9 K/uL (1.8-7.0); NEUT % 64.4 % (50.0-75.0); RBC 4.14 Mil/uL (3.80-5.20); RED CELL DISTRIBUTION WIDTH 15.8 % (11.5-14.5); WHITE BLOOD COUNT 10.8 K/uL (4.8-10.8)
[2017-04-08 09:01] LABS: CALCIUM 7.9 mg/dl (8.6-10.4)
[2017-04-08] MEDS: Ferric Sodium Gluconat Complex 62.5 mg/5 ml Vial IVPB SCH (09:37)
[2017-04-08] MEDS ORDERED: Magnesium Oxide 400 mg Tab UD PO ONE (17:30)
[2017-04-09] MEDS: (Novolin R) Insulin Human Regular 100 units/ml vial SC SCH ×7 (07:43→22:23)
--- NOTE | 2017-04-09 08:05 | CP.PCM.PN ---
Subjective - Date & Time of Evaluation Date of Evaluation: 04/09/17 Time of Evaluation: 08:03 - Subjective Subjective: PGY [address] Gamez Pt seen and examined at bedside. She is Amber speaking only and transitional care manager was used to converse with pt. She states that she is doing well today and does not have any CP or SOB. She admits to having a productive cough. She denies F/C/N/V/ abd pain/D/C. As per nursing staff there were no acute events overnight. Objective - Vital Signs/Intake and Output Vital Signs (last 24 hours): Temp Pulse Resp BP Pulse Ox 97.6 F 51 L 20 151/86 H 95 04/09/17 07:48 04/09/17 07:48 04/09/17 07:48 04/09/17 07:48 04/09/17 07:48 Intake and Output: 04/09/17 04/09/17 06:59 18:59 Output Total 500 Balance -500 - Medications Medications: Current Medications Aspirin (Ecotrin) 81 mg PO DAILY [facility] Last Admin: 04/08/17 09:38 Dose: 81 mg Carvedilol (Coreg) 6.25 mg PO BID [facility] Last Admin: 04/08/17 17:34 Dose: 6.25 mg Clopidogrel Bisulfate (Plavix) 75 mg PO DAILY [facility] Last Admin: 04/08/17 09:38 Dose: 75 mg Famotidine (Pepcid) 20 mg PO DAILY [facility] Last Admin: 04/07/17 10:54 Dose: 20 mg Ferric Sodium Gluconate Complex (Ferrlecit) 125 mg IVPB DAILY [facility] Stop: 04/13/17 10:01 Last Admin: 04/08/17 09:37 Dose: 125 mg Gabapentin (Neurontin) 100 mg PO BID [facility] Last Admin: 04/08/17 17:34 Dose: 100 mg Heparin Sodium (Porcine) (Heparin) 5,000 units SC Q12 [facility] Last Admin: 04/08/17 21:59 Dose: Not Given Hydralazine HCl (Apresoline) 25 mg PO TID [facility] Last Admin: 04/08/17 17:33 Dose: 25 mg Insulin Human Regular (Novolin R) 0 unit SC ACHS [facility] PRN Reason: Protocol Last Admin: 04/09/17 07:43 Dose: Not Given Insulin Human Regular (Novolin R) 15 unit SC AC [facility] Last Admin: 04/08/17 17:35 Dose: 15 unit Isosorbide Mononitrate (Imdur) 30 mg PO DAILY [facility] Last Admin: 04/08/17 09:38 Dose: 30 mg Rosuvastatin Calcium (Crestor) 5 mg PO HS [facility] Last Admin: 04/08/17 21:59 Dose: Not Given - Labs Labs: 04/08/17 08:35 04/08/17 08:35 PT 10.6 SECONDS (9.7-12.2) 04/03/17 11:39 INR 0.9 04/03/17 11:39 APTT 32 SECONDS (21-34) 04/03/17 11:39 - Constitutional Appears: No Acute Distress - Eye Exam Eye Exam: EOMI, Normal appearance - ENT Exam ENT Exam: Mucous Membranes Moist - Respiratory Exam Respiratory Exam: Clear to Ausculation Bilateral, NORMAL BREATHING PATTERN - Cardiovascular Exam Cardiovascular Exam: REGULAR RHYTHM, +S1, +S2 - GI/Abdominal Exam GI & Abdominal Exam: Soft. absent: Distended, Tenderness - Extremities Exam Extremities Exam: absent: Calf Tenderness, Pedal Edema - Neurological Exam Neurological Exam: Alert, Awake, Oriented x3 Assessment and Plan - Assessment and Plan (Free Text) Assessment: 66F with PMHx of CAD, CHF, HTN, HLD, and DM who presents with acute CHF exacerbation, clinically improving and awaiting discharge home Plan: CHF Exacerbation- clinically improved BNP elevated on admission: 4210 Echo: EF of 43% with elevated diastolic filling pressure. Previous Echo March 2016- EF 51%. Continue with Carvedilol 6.25mg PO BID Lasix being held due to AINSLEY/CKD Continue with Imdur 30mg PO daily Metolazone discontinued due to worsening AINSLEY on CKD Continue with Aspirin 81 mg Continue with Crestor 5mg PO Daily Cardiac diet Pt is clinically improving and is no longer having CHF symptoms. Medical team will continue to manage with possible nephro consult for AINSLEY on CKD. Thank you for your consult. We will be signing off. Please consult as needed. Case discussed with Dr. Gamez
[2017-04-09 08:25] LABS: COMPLEMENT C4 43.1 mg/dL (14.0-44.0)
--- NOTE | 2017-04-09 10:23 | US ---
HISTORY: epigastric abdominal pain COMPARISON: None available TECHNIQUE: Sonographic evaluation of the abdomen. FINDINGS: Examination limited by habitus. LIVER: Measures 19.3 cm in sagittal dimension. Echogenic liver may be seen in setting of hepatic parenchymal disease or fatty infiltration. No focal hepatic mass identified. The main portal vein appears patent with normal directional flow. No intrahepatic bile duct dilatation. GALLBLADDER: No gallstones. Pericholecystic edema/ gallbladder-wall thickening measuring approximately 7 mm. Negative sonographic Casillas's sign as assessed by the truck operator. COMMON BILE DUCT: Measures 4 mm. PANCREAS: Not well visualized. RIGHT KIDNEY: Measures 11.7 x 4.1 x 4.6cm. No obstructing calculus or hydronephrosis identified. LEFT KIDNEY: Measures 11.8 x 5.3 x 5.7cm. No obstructing calculus or hydronephrosis identified. SPLEEN: Measures approximately 9.6 cm. AORTA: Limited views appear unremarkable. IVC: Limited views appear unremarkable. OTHER FINDINGS: None. IMPRESSION: Echogenic liver may be seen in setting of hepatic parenchymal disease or fatty infiltration. Mild hepatomegaly. Gallbladder wall edema/thickening measuring up to approximately 7 mm. Negative sonographic Casillas sign as assessed by the truck operator. No gallstones or gallbladder sludge evident.
[2017-04-09] MEDS: Ferric Sodium Gluconat Complex 62.5 mg/5 ml Vial IVPB SCH (10:25)
[2017-04-09 11:30] LABS: HEMOGLOBIN 10.9 g/dL (11.0-16.0); RBC 4.08 Mil/uL (3.80-5.20); WHITE BLOOD COUNT 10.4 K/uL (4.8-10.8)
[2017-04-09 11:31] LABS: BASO # 0.1 K/uL (0.0-0.2); BASO % 0.8 % (0.0-2.0); EOS # 0.3 K/uL (0.0-0.7); EOS % 3.3 % (0.0-4.0); LYMPH # 2.6 K/uL (1.0-4.3); MEAN CELL VOLUME 82.8 fL (81.0-99.0); MEAN CORPUSCULAR HEMOGLOBIN 26.7 pg (27.0-31.0); MEAN CORPUSCULAR HGB CONC 32.3 g/dL (33.0-37.0); MEAN PLATELET VOLUME 10.2 fL (7.2-11.7); MONO # 0.8 K/uL (0.0-0.8); MONO % 7.2 % (0.0-10.0); NEUT # 6.6 K/uL (1.8-7.0); NEUT % 63.7 % (50.0-75.0); NRBC % 0.1 % (0.0-2.0); RED CELL DISTRIBUTION WIDTH 15.6 % (11.5-14.5)
[2017-04-09 12:05] LABS: CALCIUM 7.8 mg/dl (8.6-10.4)
[2017-04-09 12:23] LABS: HEPATITIS B SURFACE AG NEGATIVE (NEGATIVE)
[2017-04-09 12:29] LABS: HEPATITIS A IGM NEGATIVE (NEGATIVE); HEPATITIS B CORE AB NEGATIVE (NEGATIVE)
[2017-04-09 12:41] LABS: HEPATITIS C ANTIBODY NEGATIVE (NEGATIVE)
[2017-04-09] MEDS ORDERED: Sod Polystyrene Sulf 15 gm/60 ml Oral Susp PO ONE (13:32)
--- NOTE | 2017-04-09 13:32 | CP.PCM.PN ---
Subjective - Date & Time of Evaluation Date of Evaluation: 04/09/17 Time of Evaluation: 13:29 - Subjective Subjective: Feels about same creat elevated as before Pt does not want dialysis K elevated- will treat Objective - Vital Signs/Intake and Output Vital Signs (last 24 hours): Temp Pulse Resp BP Pulse Ox 97.6 F 52 L 20 151/86 H 95 04/09/17 07:48 04/09/17 08:17 04/09/17 07:48 04/09/17 07:48 04/09/17 07:48 Intake and Output: 04/09/17 04/09/17 06:59 18:59 Output Total 500 Balance -500 - Medications Medications: Current Medications Aspirin (Ecotrin) 81 mg PO DAILY [facility] Last Admin: 04/09/17 10:26 Dose: 81 mg Carvedilol (Coreg) 6.25 mg PO BID [facility] Last Admin: 04/09/17 10:26 Dose: 6.25 mg Clopidogrel Bisulfate (Plavix) 75 mg PO DAILY [facility] Last Admin: 04/09/17 10:26 Dose: 75 mg Famotidine (Pepcid) 20 mg PO DAILY [facility] Last Admin: 04/09/17 10:26 Dose: 20 mg Ferric Sodium Gluconate Complex (Ferrlecit) 125 mg IVPB DAILY [facility] Stop: 04/13/17 10:01 Last Admin: 04/09/17 10:25 Dose: 125 mg Gabapentin (Neurontin) 100 mg PO BID [facility] Last Admin: 04/09/17 10:26 Dose: 100 mg Heparin Sodium (Porcine) (Heparin) 5,000 units SC Q12 [facility] Last Admin: 04/09/17 10:24 Dose: 5,000 units Hydralazine HCl (Apresoline) 25 mg PO TID [facility] Last Admin: 04/09/17 13:03 Dose: 25 mg Insulin Human Regular (Novolin R) 0 unit SC ACHS [facility] PRN Reason: Protocol Last Admin: 04/09/17 12:59 Dose: 2 unit Insulin Human Regular (Novolin R) 15 unit SC AC [facility] Last Admin: 04/09/17 13:00 Dose: 15 unit Isosorbide Mononitrate (Imdur) 30 mg PO DAILY [facility] Last Admin: 04/09/17 10:26 Dose: 30 mg Rosuvastatin Calcium (Crestor) 5 mg PO HS [facility] Last Admin: 04/08/17 21:59 Dose: Not Given - Labs Labs: 04/09/17 11:22 04/09/17 11:22 PT 10.6 SECONDS (9.7-12.2) 04/03/17 11:39 INR 0.9 04/03/17 11:39 APTT 32 SECONDS (21-34) 04/03/17 11:39 - Constitutional Appears: No Acute Distress, Chronically Ill - Head Exam Head Exam: ATRAUMATIC, NORMAL INSPECTION - Eye Exam Eye Exam: EOMI, Normal appearance - Neck Exam Neck Exam: Normal Inspection. absent: Tenderness - Respiratory Exam Respiratory Exam: Clear to Ausculation Bilateral, NORMAL BREATHING PATTERN - Cardiovascular Exam Cardiovascular Exam: REGULAR RHYTHM, +S1 - GI/Abdominal Exam GI & Abdominal Exam: Soft. absent: Tenderness - Extremities Exam Extremities Exam: Normal Inspection. absent: Tenderness - Neurological Exam Neurological Exam: Alert, CN II-XII Intact - Skin Skin Exam: Dry, Warm Assessment and Plan (1) Proteinuria Status: Acute (2) Type 2 diabetes mellitus with diabetic nephropathy Status: Acute (3) Acute on chronic diastolic CHF (congestive heart failure) Status: Acute (4) CKD (chronic kidney disease) stage 4, GFR 15-29 ml/min Status: Acute (5) Cardiomyopathy Status: Acute (6) Cardiorenal syndrome Status: Acute - Assessment and Plan (Free Text) Plan: Kayexalate Pt does not want dialysis CHF treatment as per medicine
[2017-04-09 16:26] LABS: RAPID PLASMA REAGIN NONREACTIVE (NONREACTIVE)
--- NOTE | 2017-04-09 17:42 | CP.PCM.PN ---
Subjective - Date & Time of Evaluation Date of Evaluation: 04/09/17 Time of Evaluation: 07:00 - Subjective Subjective: PGY1- Medicine Note- Dr. Askew's Service Patient seen and examined at bedside and in no acute distress. Patient complains of abdominal bloating. Patient has been feeling bloated since the morning, for about 3 hours, and says it feels worse when she is walking. Patient felt this way yesterday where she was relived via bowel movement and flatulence. Complaints of congestion, shortness of breath when walking, numbness in fingers and toes. Patient denies chest pain, headaches, dizziness. Objective - Vital Signs/Intake and Output Vital Signs (last 24 hours): Temp Pulse Resp BP Pulse Ox 98.1 F 58 L 20 123/72 95 04/09/17 15:45 04/09/17 15:45 04/09/17 15:45 04/09/17 15:56 04/09/17 15:45 Intake and Output: 04/09/17 04/09/17 06:59 18:59 Output Total 500 Balance -500 - Medications Medications: Current Medications Amlodipine Besylate (Norvasc) 5 mg PO DAILY [facility] Last Admin: 04/09/17 15:56 Dose: 5 mg Aspirin (Ecotrin) 81 mg PO DAILY [facility] Last Admin: 04/09/17 10:26 Dose: 81 mg Carvedilol (Coreg) 6.25 mg PO BID [facility] Last Admin: 04/09/17 10:26 Dose: 6.25 mg Clopidogrel Bisulfate (Plavix) 75 mg PO DAILY [facility] Last Admin: 04/09/17 10:26 Dose: 75 mg Famotidine (Pepcid) 20 mg PO DAILY [facility] Last Admin: 04/09/17 10:26 Dose: 20 mg Ferric Sodium Gluconate Complex (Ferrlecit) 125 mg IVPB DAILY [facility] Stop: 04/13/17 10:01 Last Admin: 04/09/17 10:25 Dose: 125 mg Gabapentin (Neurontin) 100 mg PO BID [facility] Last Admin: 04/09/17 10:26 Dose: 100 mg Heparin Sodium (Porcine) (Heparin) 5,000 units SC Q12 [facility] Last Admin: 04/09/17 10:24 Dose: 5,000 units Hydralazine HCl (Apresoline) 25 mg PO TID [facility] Last Admin: 04/09/17 13:03 Dose: 25 mg Insulin Human Regular (Novolin R) 0 unit SC ACHS [facility] PRN Reason: Protocol Last Admin: 04/09/17 12:59 Dose: 2 unit Insulin Human Regular (Novolin R) 15 unit SC AC [facility] Last Admin: 04/09/17 13:00 Dose: 15 unit Isosorbide Mononitrate (Imdur) 30 mg PO DAILY [facility] Last Admin: 04/09/17 10:26 Dose: 30 mg Rosuvastatin Calcium (Crestor) 5 mg PO HS [facility] Last Admin: 04/08/17 21:59 Dose: Not Given - Labs Labs: 04/09/17 11:22 04/09/17 11:22 PT 10.6 SECONDS (9.7-12.2) 04/03/17 11:39 INR 0.9 04/03/17 11:39 APTT 32 SECONDS (21-34) 04/03/17 11:39 - Constitutional Appears: Well, Non-toxic, No Acute Distress - Head Exam Head Exam: ATRAUMATIC, NORMAL INSPECTION, NORMOCEPHALIC - Eye Exam Eye Exam: EOMI, Normal appearance, PERRL - ENT Exam ENT Exam: Mucous Membranes Moist, Normal Exam - Neck Exam Neck Exam: Full ROM - Respiratory Exam Respiratory Exam: Clear to Ausculation Bilateral, NORMAL BREATHING PATTERN. absent: Respiratory Distress - Cardiovascular Exam Cardiovascular Exam: REGULAR RHYTHM, RRR - GI/Abdominal Exam GI & Abdominal Exam: Soft, Tenderness, Normal Bowel Sounds. absent: Distended, Firm, Guarding - Extremities Exam Extremities Exam: Full ROM, Normal Inspection, Pedal Edema Additional comments: minimal b/l pedal edema - Back Exam Back Exam: NORMAL INSPECTION - Neurological Exam Neurological Exam: Alert, Awake, Oriented x3 - Psychiatric Exam Psychiatric exam: Normal Affect, Normal Mood - Skin Skin Exam: Intact, Normal Color, Warm Assessment and Plan - Assessment and Plan (Free Text) Assessment: 1). CHF Exacerbation/Hx CAD BNP is 4210 Echo done in March 2016 showed EF 51% and once done on this admission shows EF to be 43% Nuclear Stress Test March 2016 showed and EF of 30% Carvedilol 6.25 mg PO 2x/day Lasix 40 mg IV Q12H and Metolazone 2.5 mg PO 1x/day was discontinued due to the worsening Acute on Chronic Renal Insufficiency Isosorbide Mononitrate 30 mg PO 1x/day Cardiology Dr. Gamez Weight today 04/07/[address] Chest showed mild pulmonary congestion 2). Acute On Chronic Renal Insufficiency (Stage IV) BUN/Cr currently at 80/4.6 Urine Protein 24 hours revealed 2,688.5 (close to Nephrotic Syndrome) Renal U/S was unremarkable Will need clearance from Nephrology for discharge as patient is stable from cardiology/CHF standpoint. Nephrology's help is greatly appreciated. 04/09: Patient's Creatinine increasing. Patient does not want dialysis and cleared by Dr. Archuleta. 3). Hyperkalemia potassium 6.3 treated with Kayexalate, follow up BMP 4). HTN Carvedilol, Isorbide 5). HLD Crestor 5 mg PO QHS 6). DM 2 on Insulin Levemir 52 units and Regular Insulin increased to 15 units AC (from 12 units) as she required a total of 20 units of regular insulin on RISS from 8 AM to 8 AM 04/07/17 Regular ISS Gabapentin 300 mg PO 2x/day 7). Prophylactic Measure Heparin 5,000 Units SC Q12H Protonix 40 mg PO 1x/day Carb Consistent Diet Fluid Restrict 1200 per day Daily Weight
[2017-04-09 20:06] LABS: CALCIUM 8.1 mg/dl (8.6-10.4)
[2017-04-09] MEDS ORDERED: Insulin Detemir 100 units/ml Vial (Levemir) SC SCH (22:00)
[2017-04-10] MEDS ORDERED: Sod Polystyrene Sulf 15 gm/60 ml Oral Susp PO ONE ×2 (00:48→12:45)
[2017-04-10] MEDS: (Novolin R) Insulin Human Regular 100 units/ml vial SC SCH ×4 (08:04→13:08)
[2017-04-10] MEDS: Ferric Sodium Gluconat Complex 62.5 mg/5 ml Vial IVPB SCH (09:53)
--- NOTE | 2017-04-10 11:46 | CP.PCM.PN ---
Subjective - Date & Time of Evaluation Date of Evaluation: 04/10/17 Time of Evaluation: 11:44 - Subjective Subjective: seen and examined comfortable uop approx 500cc charted bp high noted creatinine improving. high k noted denies cp/sob/nausea/vomiting/headache/fevers/chills/dizziness Objective - Vital Signs/Intake and Output Vital Signs (last 24 hours): Temp Pulse Resp BP Pulse Ox 97.2 F L 60 20 151/76 H 99 04/10/17 07:49 04/10/17 11:03 04/10/17 07:49 04/10/17 11:05 04/10/17 07:49 Intake and Output: 04/10/17 04/10/17 06:59 18:59 Intake Total 400 Balance 400 - Medications Medications: Current Medications Amlodipine Besylate (Norvasc) 10 mg PO DAILY [facility] Aspirin (Ecotrin) 81 mg PO DAILY [facility] Last Admin: 04/10/17 09:54 Dose: 81 mg Carvedilol (Coreg) 6.25 mg PO BID [facility] Last Admin: 04/10/17 09:54 Dose: 6.25 mg Clopidogrel Bisulfate (Plavix) 75 mg PO DAILY [facility] Last Admin: 04/10/17 09:54 Dose: 75 mg Famotidine (Pepcid) 20 mg PO DAILY [facility] Last Admin: 04/10/17 09:54 Dose: 20 mg Ferric Sodium Gluconate Complex (Ferrlecit) 125 mg IVPB DAILY [facility] Stop: 04/13/17 10:01 Last Admin: 04/10/17 09:53 Dose: 125 mg Furosemide (Lasix) 40 mg PO DAILY [facility] Last Admin: 04/10/17 11:05 Dose: 40 mg Gabapentin (Neurontin) 100 mg PO BID [facility] Last Admin: 04/10/17 09:54 Dose: 100 mg Heparin Sodium (Porcine) (Heparin) 5,000 units SC Q12 [facility] Last Admin: 04/10/17 09:54 Dose: 5,000 units Hydralazine HCl (Apresoline) 25 mg PO TID [facility] Last Admin: 04/10/17 09:54 Dose: 25 mg Insulin Detemir (Levemir) 52 unit SC HS [facility] Last Admin: 04/09/17 22:53 Dose: 52 unit Insulin Human Regular (Novolin R) 0 unit SC ACHS [facility] PRN Reason: Protocol Last Admin: 04/10/17 08:04 Dose: Not Given Insulin Human Regular (Novolin R) 15 unit SC AC [facility] Last Admin: 04/10/17 09:55 Dose: 15 unit Isosorbide Mononitrate (Imdur) 30 mg PO DAILY [facility] Last Admin: 04/10/17 09:54 Dose: 30 mg Rosuvastatin Calcium (Crestor) 5 mg PO HS [facility] Last Admin: 04/09/17 22:01 Dose: 5 mg - Labs Labs: 04/09/17 11:22 04/09/17 19:48 PT 10.6 SECONDS (9.7-12.2) 04/03/17 11:39 INR 0.9 04/03/17 11:39 APTT 32 SECONDS (21-34) 04/03/17 11:39 - Constitutional Appears: No Acute Distress, Chronically Ill - Head Exam Head Exam: NORMAL INSPECTION - Eye Exam Eye Exam: Normal appearance - ENT Exam ENT Exam: Mucous Membranes Moist, Normal Exam - Neck Exam Neck Exam: Normal Inspection - Respiratory Exam Respiratory Exam: Clear to Ausculation Bilateral, NORMAL BREATHING PATTERN - Cardiovascular Exam Cardiovascular Exam: REGULAR RHYTHM - GI/Abdominal Exam GI & Abdominal Exam: Distended, Soft - Extremities Exam Extremities Exam: Pedal Edema - Neurological Exam Neurological Exam: Alert, Awake, Oriented x3 Assessment and Plan (1) AINSLEY (acute kidney injury) Status: Acute (2) Acute on chronic diastolic CHF (congestive heart failure) Status: Acute (3) Acute on chronic renal insufficiency Status: Acute (4) CKD (chronic kidney disease) stage 4, GFR 15-29 ml/min Status: Acute (5) Cardiorenal syndrome Status: Acute (6) HTN (hypertension) Status: Acute - Assessment and Plan (Free Text) Assessment: s/p kayexelate x 2 changed to 2g k diet increase norvasc dose creatinine stabilizing, no indication for hd recommend starting low dose lasix, 40mg daily. follow up outpt w/ labs within 1 week
[2017-04-10 12:03] LABS: BASO # 0.1 K/uL (0.0-0.2); BASO % 0.7 % (0.0-2.0); EOS # 0.2 K/uL (0.0-0.7); EOS % 1.6 % (0.0-4.0); HEMOGLOBIN 10.6 g/dL (11.0-16.0); LYMPH # 2.3 K/uL (1.0-4.3); LYMPH % 21.7 % (20.0-40.0); MEAN CELL VOLUME 82.9 fL (81.0-99.0); MEAN CORPUSCULAR HEMOGLOBIN 26.3 pg (27.0-31.0); MEAN CORPUSCULAR HGB CONC 31.7 g/dL (33.0-37.0); MEAN PLATELET VOLUME 10.1 fL (7.2-11.7); MONO # 0.7 K/uL (0.0-0.8); MONO % 6.4 % (0.0-10.0); NEUT # 7.4 K/uL (1.8-7.0); NEUT % 69.6 % (50.0-75.0); RBC 4.04 Mil/uL (3.80-5.20); RED CELL DISTRIBUTION WIDTH 15.5 % (11.5-14.5); WHITE BLOOD COUNT 10.7 K/uL (4.8-10.8)
[2017-04-10 12:17] LABS: ALBUMIN 2.9 g/dL (3.5-5.0)
[2017-04-10 12:20] LABS: ALB/GLOB RATIO 0.9 (1.0-2.1)
[2017-04-10 12:21] LABS: MAGNESIUM 2.5 mg/dL (1.6-2.3)
[2017-04-10 14:23] LABS: CALCIUM 8.4 mg/dl (8.6-10.4)
--- NOTE | 2017-04-10 16:45 | PCM.HF ---
Heart Failure Core Measure - Heart Failure Ejection Fraction: 40 % or Greater SUSANNE Inhibitor Prescribed: No Contraindication/Reason for not providing: ARF Beta-Lee Prescribed: Carvedilol Angiotensin II Receptor Lee Prescribed: No Contraindication/Reason for not providing: ARF AnticoagulationTherapy for Atrial Fibrillation/Atrialflutter: No Contraindication/Reason for not providing: NO HX OF AFIB Aldosterone Antagonist Prescribed: Yes Hydralazine Nitrate Prescribed: Yes Implantable Cardioverter Defibrillator Therapy: No Contraindication/Reason for not providing: EF>45 Cardiac Resynchronization Therapy Prescribed: No Contraindication/Reason for not providing: EF.45 - Follow up Will be discharged to: Home Follow Up Date (must be within 7 days from discharge): 04/13/17 Follow Up Time: 09:00
[2017-04-10 17:08] VITALS: BP 125/61; TEMP 97.6; O2SAT 94
--- NOTE | 2017-04-10 19:06 | CP.PCM.DIS ---
Provider - Provider Date of Admission: 04/03/17 00:56 Attending physician: Hermelindo Jo MD Consults: Dr. Archuleta Time Spent in preparation of Discharge (in minutes): 45 Diagnosis - Discharge Diagnosis (1) Acute on chronic diastolic CHF (congestive heart failure) Status: Acute Comment: see summary for details (2) Acute on chronic renal insufficiency Status: Acute Comment: see summary for details (3) Type 2 diabetes mellitus with diabetic nephropathy Status: Acute Comment: see summary for details (4) HTN (hypertension) Status: Acute Comment: see summary for details Hospital Course - Lab Results Lab Results: Most Recent Lab Values WBC 10.7 K/uL (4.8-10.8) 04/10/17 11:55 RBC 4.04 Mil/uL (3.80-5.20) 04/10/17 11:55 Hgb 10.6 g/dL (11.0-16.0) L 04/10/17 11:55 Hct 33.5 % (34.0-47.0) L 04/10/17 11:55 MCV 82.9 fL (81.0-99.0) 04/10/17 11:55 MCH 26.3 pg (27.0-31.0) L 04/10/17 11:55 MCHC 31.7 g/dL (33.0-37.0) L 04/10/17 11:55 RDW 15.5 % (11.5-14.5) H 04/10/17 11:55 Plt Count 253 K/uL (130-400) 04/10/17 11:55 MPV 10.1 fL (7.2-11.7) 04/10/17 11:55 Neut % (Auto) 69.6 % (50.0-75.0) 04/10/17 11:55 Lymph % (Auto) 21.7 % (20.0-40.0) 04/10/17 11:55 [place] % (Auto) 6.4 % (0.0-10.0) 04/10/17 11:55 Eos % (Auto) 1.6 % (0.0-4.0) 04/10/17 11:55 Baso % (Auto) 0.7 % (0.0-2.0) 04/10/17 11:55 Neut # 7.4 K/uL (1.8-7.0) H 04/10/17 11:55 Lymph # 2.3 K/uL (1.0-4.3) 04/10/17 11:55 [place] # 0.7 K/uL (0.0-0.8) 04/10/17 11:55 Eos # 0.2 K/uL (0.0-0.7) 04/10/17 11:55 Baso # 0.1 K/uL (0.0-0.2) 04/10/17 11:55 PT 10.6 SECONDS (9.7-12.2) 04/03/17 11:39 INR 0.9 04/03/17 11:39 APTT 32 SECONDS (21-34) 04/03/17 11:39 Sodium 140 mmol/L (132-148) 04/10/17 14:01 Potassium 5.1 mmol/L (3.6-5.2) 04/10/17 14:01 Chloride 104 mmol/L (98-107) 04/10/17 14:01 Carbon Dioxide 24 mmol/L (22-30) 04/10/17 14:01 Anion Gap 18 (10-20) 04/10/17 14:01 BUN 77 mg/dL (7-17) H 04/10/17 14:01 Creatinine 4.2 MG/DL (0.7-1.2) H 04/10/17 14:01 Est GFR ( Amer) 13 04/10/17 14:01 Est GFR (Non-Af Amer) 11 04/10/17 14:01 POC Glucose (mg/dL) 148 mg/dL (65-110) H 04/10/17 16:22 Random Glucose 65 mg/dL (65-105) 04/10/17 14:01 Hemoglobin A1c 11.1 % (4.2-6.5) H 04/03/17 05:21 Calcium 8.4 mg/dl (8.6-10.4) L 04/10/17 14:01 Phosphorus 7.2 mg/dL (2.5-4.5) H 04/10/17 11:55 Magnesium 2.5 mg/dL (1.6-2.3) H 04/10/17 11:55 Iron 20 ug/dL (37-170) L 04/04/17 17:26 TIBC 253 ug/dL (250-450) 04/04/17 17:26 % Saturation 8 (20-55) L 04/04/17 17:26 Ferritin 92.8 ng/mL 04/04/17 17:26 Total Bilirubin 0.4 mg/dL (0.2-1.3) 04/10/17 11:55 AST 59 U/L (14-36) H D 04/10/17 11:55 ALT 58 U/L (9-52) H D 04/10/17 11:55 Alkaline Phosphatase 83 U/L (38-126) 04/10/17 11:55 Troponin I < 0.0120 ng/mL (0.00-0.120) 04/03/17 00:08 NT-Pro-B Natriuret Pep 4210 pg/mL (0-900) H 04/03/17 00:08 Total Protein 6.1 g/dL (6.3-8.3) L 04/10/17 11:55 Total Protein (PEP) 6.2 g/dL (6.1-8.1) 04/09/17 11:22 Albumin 2.9 g/dL (3.5-5.0) L 04/10/17 11:55 Globulin 3.2 gm/dL (2.2-3.9) 04/10/17 11:55 Albumin/Globulin Ratio 0.9 (1.0-2.1) L 04/10/17 11:55 Triglycerides 109 mg/dL (0-149) D 04/03/17 05:21 Cholesterol 207 mg/dL (0-199) H 04/03/17 05:21 LDL Cholesterol Direct 135 mg/dL (0-129) H 04/03/17 05:21 HDL Cholesterol 40 mg/dL (30-70) 04/03/17 05:21 25-OH Vitamin D Total < 12.8 NG/ML (30.0-100.0) L 04/03/17 05:21 PTH Intact Whole Molec 352 pg/mL (14-64) H 04/05/17 07:24 Urine Color Straw (YELLOW) 04/03/17 00:53 Urine Clarity Clear (Clear) 04/03/17 00:53 Urine pH 6.0 (5.0-8.0) 04/03/17 00:53 Ur Specific [place] 1.011 (1.003-1.030) 04/03/17 00:53 Urine Protein 2+ mg/dL (NEGATIVE) H 04/03/17 00:53 Urine Glucose (UA) 3+ mg/dL (Normal) H 04/03/17 00:53 Urine Ketones Negative mg/dL (NEGATIVE) 04/03/17 00:53 Urine Blood Negative (NEGATIVE) 04/03/17 00:53 Urine Nitrate Negative (NEGATIVE) 04/03/17 00:53 Urine Bilirubin Negative (NEGATIVE) 04/03/17 00:53 Urine Urobilinogen Normal mg/dL (0.2-1.0) 04/03/17 00:53 Ur Leukocyte Esterase Neg Wilian/uL (Negative) 04/03/17 00:53 Urine WBC (Auto) 1 /hpf (0-5) 04/03/17 00:53 Urine RBC (Auto) 1 /hpf (0-3) 04/03/17 00:53 Ur Squamous Epith Cells 2 /hpf (0-5) 04/03/17 00:53 Urine Bacteria Rare (<OCC) 04/03/17 00:53 Urine Eosinophils Negative (NEGATIVE) 04/03/17 08:02 Ur Random Creatinine 25.5 mg/dL 04/03/17 08:02 U Random Total Protein 266.0 mg/dL (0.0-12.0) H 04/03/17 11:21 Urine Collection Time 24 HRS 04/05/17 14:45 Urine Total Volume 950 mL 04/05/17 14:45 Ur Protein 24 Hr Calc 2688.5 mg/24hr (42-225) H 04/05/17 14:45 Serum Cryoglobulins Negative (NEGATIVE) 04/09/17 07:46 SELINA 6 Profile Negative (NEGATIVE) 04/09/17 07:46 Complement C3 108.0 mg/dL (88.0-165.0) 04/09/17 07:46 Complement C4 43.1 mg/dL (14.0-44.0) 04/09/17 07:46 RPR Nonreactive (NONREACTIVE) 04/09/17 07:46 Hepatitis A IgM Ab Negative (NEGATIVE) 04/09/17 11:22 Hep Bs Antigen Negative (NEGATIVE) 04/09/17 11:22 Hep B Core IgM Ab Negative (NEGATIVE) 04/09/17 11:22 Hepatitis C Antibody Negative (NEGATIVE) 04/09/17 11:22 HIV 1&2 Antibody Screen Negative (NEGATIVE) 04/09/17 11:22 - Hospital Course Hospital Course: "CC: SOB HPI: 66F with PMHx of CAD, CHF, HTN, HLD, DM presents to ED with SOB. As per daughter that was at bedside, patient returned from [place] last week. For the past month she has been feeling fatigued, SOB, difficulty ambulating. She is compliant with her medications, but she does not adhere to the limit in fluid intake and salt intake. Her blood pressures the past 3 days have been elevated, prompting her visit to the ED. She sleeps with 2 pillows at night, denied PND. She admitted to a 20lb weight gain the past few months. Denied fever, chills, headache, chest pain, abdominal pain, n/v/d/c, or urinary symptoms." Admitted on 04/03/17 for CHF exacerbation and acute on chronic renal insufficiency. Patient treated for CHF exacerbation. Dr. Gamez from Cardiology was consulted. BNP was found to be 4210 [04/03] and Echocardiogram [04/03] found an overall ejection fraction of 43%. Findings also included LV elevated diastolic filling pressure, mitral valve mild incompetence, dilated LA, aortic valve leaflets have mild calcified thickening and pulmonic valve has mild incompentence. Nuclear stress test from March 2016 showed an EF of 30%. CXR [] found prominent diffuse increased interstitial lung markings suggestive for infiltrate and or edema. Chest CT [04/03] was ordered and findings were consistent with mild pulmonary edema/CHF. There are linear atelectasis and or scarring left of the upper lobe. Cardiomegaly is present. ECGs were preformed. ECG on 04/02 found normal sinus rhythm, left axis deviation, septal infarct of undetermined age, inferior infarct of undetermined age. Troponin [] were within normal range. ECG on 04/09 found sinus bradycardia, left axis deviation, inferior infarct of undetermined age, anterior infarct of undetermined age, T wave abnormality to consider lateral ischemia. Patient experienced lower extremity edema where a Venous Duplex scan LE [04/03] bilaterally found no evidence of deep or superficial vein thrombosis and normal valve function bilaterally. [employer] cleared patient for discharge. Medications administered include carvedilol, norvasc, lasix. Patient was treated for acute on chronic renal insufficiency stage IV. Nephrology was consulted: Dr. Singer, Dr. Archuleta. On admission [04/03] BUN/Cr was 68/3.4, on [04/10] it was 77/4.2. Random total protien was 266H on 04/03. Urine protein 24 hour [04/05] was calculated at 2688.5, levels close to nephrotic syndrome. Renal ultrasound [04/03] was performed and found unremarkable kidneys and no hydronephrosis. On 04/09 patient had hyperkalemia and kayexalate was given. On 04/10 more kayexalate was given and Potassium dropped further. Patient refuses dialysis and was cleared by Dr. Archuleta. While admitted patient experienced bloating. An Abdominal Ultrasound [04/09] found mild hepatomegaly, an echogenic liver that may be seen in setting of hepatic parenchymal disease or fatty infiltration, and gallbladder wall edema/ thickening measuring up to apprx 7mm without gallstones or gallbladder sludge evident. Patient's chronic diseases where monitored and managed including HTN, HLD, DM2. On admission HbA1c [04/03]: 11.1H. Prophylactic measures were also taken. Followed a carb consistent diet and fluid restriction of 1200 per day. Medications administered include clopidogrel, aspirin, plavix, hydralazine, neurontin, levemir, novolin, novolin ISS, crestor, pepcid, heparin. This is a summary of the hospital course. Please see chart for full details. Discharge Exam - Head Exam Head Exam: NORMAL INSPECTION - Eye Exam Eye Exam: EOMI, Normal appearance, PERRL Pupil Exam: NORMAL ACCOMODATION, PERRL - ENT Exam ENT Exam: Mucous Membranes Moist - Neck Exam Neck exam: Full Rom - Respiratory Exam Respiratory Exam: Clear to PA & Lateral, NORMAL BREATHING PATTERN. absent: Rales, Rhonchi, Wheezes, Respiratory Distress, Stridor - Cardiovascular Exam Cardiovascular Exam: REGULAR RHYTHM, RRR. absent: Gallop, Rubs, Systolic Murmur - GI/Abdominal Exam GI & Abdominal Exam: Normal Bowel Sounds, Unremarkable. absent: Distended, Firm , Guarding - Extremities Exam Extremities exam: normal inspection Additional comments: trace pedal edema - Back Exam Back exam: NORMAL INSPECTION - Neurological Exam Neurological exam: Alert, Oriented x3 - Psychiatric Exam Psychiatric exam: Normal Affect, Normal Mood - Skin Skin Exam: Intact, Normal Color, Warm Discharge Plan - Discharge Medications Prescriptions: amLODIPine [Norvasc] 5 mg PO DAILY #30 tab Carvedilol [Coreg] 6.25 mg PO BID #60 tab Clopidogrel [Plavix] 75 mg PO DAILY #30 tab Furosemide [Lasix] 40 mg PO DAILY #30 Gabapentin [Neurontin] 100 mg PO BID #30 cap hydrALAZINE [Apresoline] 25 mg PO TID #90 tab Insulin Detemir [Levemir] 52 unit SC HS #2 vial Insulin Human Regular [Novolin R] 15 unit SC AC #2 vial Isosorbide Mononitrate [Imdur] 30 mg PO DAILY #30 tab Simvastatin 20 mg PO DAILY #30 tablet Sodium Polystyrene Sulfonate [kayeXALATE Oral Susp] 15 gm PO DAILY #1 bottle - Follow Up Plan Condition: FAIR Disposition: HOME/ ROUTINE Instructions: Furosemide (By mouth), Gabapentin (By mouth), Hydralazine (By mouth), Amlodipine (By mouth), Simvastatin (By mouth), Isosorbide Mononitrate ( By mouth), Carvedilol (By mouth), Clopidogrel (By mouth), Sodium Polystyrene Sulfonate (By mouth), Heart Failure (DC), Acute Kidney Injury (DC), Meal Planning with Diabetes Exchanges (DC), Hyperkalemia (DC), Dyspnea (GEN) Additional Instructions: Patient stable for discharge as per Dr. Archuleta and Dr. Askew. Patient is to continue taking home medications except she should stop taking lisinopril 5 mg and stop taking metolazone 2.5 mg. Patient's Levemir will now be 52 U SC HS and the Novolin will be 15 U SC before meals. Patient's new medications are: Norvasc 5 mg PO daily, Hydralazine 25 PO TID, Imdur 30 mg PO daily, and Kayexalate 15gm/60 mL PO daily for 5 days. Patient to follow up with Dr. Archuleta (nephro) within 1 week of discharge. Patient to return to Emergency Room Immediately if symptoms worsen. Instructions explained to patient who understands and agrees. Referrals: Felice Askew MD [Staff Provider] - Ibrahima Archuleta MD [Staff Provider] -
[2017-04-10 19:15] VITALS: PULSE 64
--- NOTE | 2017-04-11 11:57 | CARD ---
APPROVED REPORT EKG Measurement Heart [id number] <Conclusion> Sinus bradycardia Left axis deviation Inferior infarct, age undetermined Anterior infarct, age undetermined T wave abnormality, consider lateral ischemia Abnormal ECG
[2017-04-11 20:56] LABS: ALPHA-1-GLOBULIN (PEP) 0.4 g/dL (0.2-0.3)
== END 2017-04-10 16:55 | disposition home or self-care (01) | DRG 291 ==
LOC: C.ER 23:18 → C.9E 04-03 00:56 → C.5T 04-03 13:20
PROVIDERS: ADMIT Family Medicine; ATTEND Family Medicine
DX: I13.0 Hypertensive heart and chronic kidney disease with heart failure and stage 1 through stage 4 chronic kidney disease, or unspecified chronic kidney disease (principal); I50.33 Acute on chronic diastolic (congestive) heart failure; N17.9 Acute kidney failure, unspecified; N18.4 Chronic kidney disease, stage 4 (severe); I42.9 Cardiomyopathy, unspecified; E11.21 Type 2 diabetes mellitus with diabetic nephropathy; E87.5 Hyperkalemia; E11.22 Type 2 diabetes mellitus with diabetic chronic kidney disease; Z79.4 Long term (current) use of insulin; E78.00 Pure hypercholesterolemia, unspecified; E78.5 Hyperlipidemia, unspecified; Z95.1 Presence of aortocoronary bypass graft; I25.10 Atherosclerotic heart disease of native coronary artery without angina pectoris; D50.9 Iron deficiency anemia, unspecified